=== PATIENT | female | born 1970 | race Caucasian/White ===

== ENCOUNTER 2019-12-27 11:49 | Inpatient (IN) | payer SELFPAY ==
[2019-12-27] MEDS ORDERED: NA CHLORIDE 0.9% 1,000 ML ONE ×4 (12:23→18:27)
[2019-12-27] MEDS ORDERED: ONDANSETRON 4 MG/2 ML VIAL ONE (12:23)
[2019-12-27 12:44] LABS: Protime INR 1.25
[2019-12-27 12:49] LABS: Hematocrit 22.7 % (36.0-45.0); RBC Red Blood Cell Count 3.17 M/uL (3.86-4.86)
--- NOTE | 2019-12-27 12:58 | RAD REPORT ---
EXAM DESCRIPTION: Angel[facility] Single View12/27/2019 12:42 pm CLINICAL HISTORY: sob COMPARISON: none FINDINGS: The right hilum is prominent. Left lung appears clear. The heart is normal sized IMPRESSION: Right hilum is prominent. This may represent confluence of pulmonary vessels or probably less likely lymphadenopathy. Follow up PA and lateral chest series in 1 month is recommended for re- evaluation
[2019-12-27 13:01] LABS: ALT/SGPT 34 U/L (12-78); AST/SGOT 148 U/L (15-37); Albumin 2.8 g/dL (3.4-5.0); Alkaline Phosphatase 259 U/L (45-117); BUN Blood Urea Nitrogen 2 mg/dL (7-18); Bicarbonate 23 mmol/L (21-32); Bilirubin Direct 1.3 mg/dL (0-0.2); Bilirubin Total 1.9 mg/dL (0.2-1.0); Glucose Level 121 mg/dL (74-106); Magnesium 1.4 mg/dL (1.8-2.4); NT PRO-BNP 126 pg/mL (<125); Protein, Total 7.9 g/dL (6.4-8.2); Sodium Level 136 mmol/L (136-145); Troponin (Emerg Dept Use Only) < 0.02 ng/mL (0.0-0.045)
[2019-12-27 13:09] LABS: Potassium 2.6 mmol/L (3.5-5.1)
[2019-12-27 13:10] LABS: Anisocytosis 1+; Blood Morphology Comment NOTED (NOT SEEN); Platelet Estimate ADEQ; Platelets, Giant FEW
--- NOTE | 2019-12-27 13:10 | RAD REPORT ---
EXAM DESCRIPTION: CT - Head Brain Wo Cont - 12/27/2019 12:43 pm CLINICAL HISTORY: dizziness COMPARISON: None. TECHNIQUE: Computed axial tomography of the head was obtained. IV contrast was not requested. All CT scans are performed using dose optimization technique as appropriate and may include automated exposure control or mA/KV adjustment according to patient size. FINDINGS: An intracranial bleed is not seen . The ventricles are normal in caliber. No extra-axial fluid collection is noted. Fluid within the sinuses/ mastoids is not seen. IMPRESSION: No acute intracranial abnormality is seen. If patient's symptoms persist MRI of the bra in would be recommended.
[2019-12-27 13:11] LABS: Hypochromasia 3+
[2019-12-27] MEDS ORDERED: MAGNESIUM SULFATE 1 gm IVPB 1 GM/100 ML BAG IV ONE (13:33)
[2019-12-27] MEDS ORDERED: KCL 20 MEQ/100 mL IVPB 20 MEQ/100 ML BAG IV ONE ×2 (13:34→15:40)
--- NOTE | 2019-12-27 14:18 | RAD REPORT ---
EXAM DESCRIPTION: CT - Abdomen Pelvis W Contrast - 12/27/2019 1:41 pm CLINICAL HISTORY: Abdominal pain/vomiting COMPARISON: 2009 TECHNIQUE: Computed axial tomography of the abdomen pelvis was obtained. 100 cc Isovue-300 was admin istered intravenously. Oral contrast was not requested which limits evaluation of bowel. All CT scans are performed using dose optimization technique as appropriate and may include automated exposure control or mA/KV adjustment according to patient size. FINDINGS: Fatty liver. Cholelithiasis without gallbladder wall thickening. The spleen measures 13 centimeters. Pancreas and adrenals unremarkable Punctate nonobstructing calculi a left kidney Moderate right hydronephrosis minimally improved from the prior exam. Delayed concentration of contra st within the right kidney. 9.7 centimeter heterogeneous mass abuts the left aspect of the uterus. It has increased in size since the prior exam. A 4.7 centimeter mass abuts the right aspect of the uterine fundus. 3 centimeter com plex cystic structure right adnexa. Trace amount of free fluid. No evidence of diverticulitis. Small umbilical hernia IMPRESSION: Moderate right hydronephrosis probably is secondary to a UPJ stricture 9.7 centimeter mass which abuts the left aspect of the uterus may represent a degenerating fibroid. 4.7 centimeter mass abutting the right aspect of the uterine fundus may represent a subserosal fibroi d. 3.1 centimeter complex cystic structure right adnexa may arise from the right ovary may represent a b enign complex cyst MRI of the pelvis is recommended for further evaluation Cholelithiasis
--- NOTE | 2019-12-27 14:44 | RAD REPORT ---
EXAM DESCRIPTION: US - Abdomen Exam Limited - 12/27/2019 2:21 pm CLINICAL HISTORY: Abdominal pain. COMPARISON: None. FINDINGS: The gallbladder wall is not thickened. Small gallstone The biliary tree is normal caliber. IMPRESSION: Cholelithiasis without evidence cholecystitis
[2019-12-27 15:26] LABS: Urine Bacteria >50 /HPF (<20); Urine Culture Reflex Order NOT NEEDED; Urine RBC <5 /HPF (NONE SEEN)
[2019-12-27 15:26] LABS: Urine Blood NEGATIVE (NEG); Urine Glucose NEGATIVE (NEG); Urine Protein NEGATIVE (NEG); Urine pH 6.5 (5.0-7.0)
--- NOTE | 2019-12-27 15:31 | ER ---
Nurse's Notes [facility] Name: Bisi Key Age: 49 yrs Sex: Female : 1970 Arrival Date: 12/27/2019 Time: 11:54 Bed 13 Private MD: None, None Diagnosis: Urinary tract infection, site not specified;Hypokalemia;Hypomagnesemia;Infectious mononucleosis;Anemia Presentation: 12/26 12:05 Chief complaint: Patient states: Dizziness, N/V, low back pain and generalized weakness ph x approx 10 days, denies fever or urinary stmptoms. Coronavirus screen: Patient denies a cough. Patient denies shortness of breath or difficulty breathing. Patient denies measured and/or subjective temperature greater than 100.4F prior to today's visit. Patient denies travel on a cruise ship or to a country the [facility] currently lists as an affected area. Patient denies contact with known and/or suspected case of COVID-19. Ebola Screen: No symptoms or risks identified at this time. Initial Sepsis Screen: Does the patient meet any 2 criteria? No. Patient's initial sepsis screen is negative. Does the patient have a suspected source of infection? No. Patient's initial sepsis screen is negative. Risk Assessment: Do you want to hurt yourself or someone else? Patient reports no desire to harm self or others. Onset of symptoms was December 27, 2019. 12:05 Method Of Arrival: Ambulatory ph 12:05 Acuity: AKASH 3 ph Triage Assessment: 13:00 General: Appears ill, Behavior is calm, cooperative. ll1 17:08 Pain: Complains of pain in upper abdomen that wraps around trunk to back Pain currently ll1 is 3 out of 10 on a pain scale. Quality of pain is described as pressure, Is continuous. Cardiovascular: Reports fatigue, shortness of breath, Heart tones S1 S2 Capillary refill < 3 seconds Clubbing of nail beds is absent JVD is absent Patient's skin is warm and dry. Respiratory: No deficits noted. GI: Abdomen is flat, Bowel sounds present X 4 quads. Abd is soft and non tender Reports upper abdominal pain, nausea, vomiting. 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 - Social history:: Smoking status: Patient denies any tobacco usage or history of. Screenin:09 Abuse screen: Denies threats or abuse. Nutritional screening: No deficits noted. ll1 Tuberculosis screening: No symptoms or risk factors identified. Fall Risk IV access (20 points). Gait- Weak (10 pts.). Total Calvo Fall Scale indicates Low Risk Score (25-44 pts). Fall prevention measures have been instituted. Side Rails Up X 2 Frequent Obs/Assesments occuring As available Patient and Family Educated on Fall Prevention Program and strategies. Assessment: 12:07 General: Appears uncomfortable, Behavior is calm, cooperative. Neuro: Reports ll1 dizziness, weakness. Cardiovascular: No deficits noted. Respiratory: Reports shortness of breath on exertion Airway is patent Trachea midline Respiratory effort is even, unlabored, Respiratory pattern is regular, symmetrical, the patient has mild shortness of breath. GI: Abdomen is flat, Bowel sounds present X 4 quads. Abd is soft and non tender Reports nausea, vomiting. 13:00 Reassessment: No changes from previously documented assessment. Patient and/or family ll1 updated on plan of care and expected duration. Pain level reassessed. Patient is alert, oriented x 3, equal unlabored respirations, skin warm/dry/pink. 14:00 Reassessment: No changes from previously documented assessment. Patient and/or family ll1 updated on plan of care and expected duration. Pain level reassessed. Patient is alert, oriented x 3, equal unlabored respirations, skin warm/dry/pink. 15:00 Reassessment: No changes from previously documented assessment. Patient and/or family ll1 updated on plan of care and expected duration. Pain level reassessed. Patient is alert, oriented x 3, equal unlabored respirations, skin warm/dry/pink. 16:00 Reassessment: No changes from previously documented assessment. Patient and/or family ll1 updated on plan of care and expected duration. Pain level reassessed. Patient is alert, oriented x 3, equal unlabored respirations, skin warm/dry/pink. 17:00 Reassessment: No changes from previously documented assessment. Patient and/or family ll1 updated on plan of care and expected duration. Pain level reassessed. Patient is alert, oriented x 3, equal unlabored respirations, skin warm/dry/pink. 17:57 Reassessment: No changes from previously documented assessment. Patient and/or family ll1 updated on plan of care and expected duration. Pain level reassessed. Patient is alert, oriented x 3, equal unlabored respirations, skin warm/dry/pink. Vital Signs: 12:05 BP 107 / 72; Pulse 101; Resp 18; Temp 97.4; Pulse Ox 100% on R/A; Weight 68.04 kg; ph Height 5 ft. 3 in. (160.02 cm); Pain 3/10; 12:52 BP 103 / 66; Pulse 69; Resp 16; Pulse Ox 100% ; ll1 14:19 BP 108 / 64; Pulse 92; Resp 18; Pulse Ox 100% ; ll1 15:22 BP 102 / 64; Pulse 92; Resp 17; Pulse Ox 99% ; ll1 16:38 BP 109 / 70; Pulse 88; Resp 16; Pulse Ox 100% ; ll1 16:47 Pulse 88; Resp 16; Temp 97.9; Pulse Ox 100% ; Pain 3/10; ll1 17:52 BP 106 / 67; Pulse 89; Resp 16; Pulse Ox 99% ; ll1 12:05 Body Mass Index 26.57 (68.04 kg, 160.02 cm) ph ED Course: 11:54 Patient arrived in ED. dp 11:55 Cailin Mcadams RN is Primary Nurse. ll1 11:56 [facility]. m 11:56 Gaurang Carbajal MD is Attending Physician. jmm 11:56 None, None is Private Physician. dp 12:06 Inserted saline lock: 20 gauge in right antecubital area, using aseptic technique. ll1 Blood collected. 12:07 Triage completed. ph 12:07 Arm band placed on Patient placed in an exam room, on a stretcher. ph 12:09 Patient has correct armband on for positive identification. Bed in low position. Call ll1 light in reach. Side rails up X 1. 12:39 EKG done, by industrial machine system technician. reviewed by Amor WHEELER. at1 12:42 XRAY Chest (1 view) In Process Unspecified. EDMS 12:43 CT Head Brain wo Cont In Process Unspecified. EDMS 13:42 CT Abd/Pelvis - IV Contrast Only In Process Unspecified. EDMS 14:22 US Abdomen Limited In Process Unspecified. EDMS 15:29 Aimee Barba MD is Hospitalizing Provider. m 17:07 No provider procedures requiring assistance completed. Patient admitted, IV remains in ll1 place. Administered Medications: 12:28 Drug: NS 0.9% 1000 ml Route: IV; Rate: 1 bolus; Site: right antecubital; 1 13:30 Follow up: Response: No adverse reaction; RASS: Alert and Calm (0); IV Status: ll1 Completed infusion; IV Intake: 1000ml 12:28 Drug: Zofran (Ondansetron) 4 mg Route: IVP; Site: right antecubital; 1 12:51 Follow up: Response: No adverse reaction; Nausea is decreased; RASS: Alert and Calm (0) ll1 14:14 Drug: Potassium Chloride 20 mEq Route: IV; Rate: calculated rate; Site: right ll1 antecubital; 15:52 Follow up: Response: No adverse reaction; RASS: Alert and Calm (0); IV Status: ll1 Completed infusion; IV Intake: 100ml 14:14 Drug: Magnesium Sulfate 1 grams Route: IVPB; Infused Over: 1 hrs; Site: right ll1 antecubital; 15:21 Follow up: Response: No adverse reaction; IV Status: Completed infusion; IV Intake: ll1 100ml 15:40 Drug: Rocephin - (cefTRIAXone) 1 grams Route: IVPB; Infused Over: 30 mins; Site: right ll1 antecubital; 15:53 Follow up: Response: No adverse reaction; IV Status: Completed infusion; IV Intake: [id number] 15:54 Drug: Potassium Chloride 20 mEq Route: IV; Rate: calculated rate; Site: right ll1 antecubital; 17:12 Follow up: Response: No adverse reaction; IV Status: Infusion continued upon admission; [facility] IV Intake: 40ml 18:01 Follow up: IV Status: Completed infusion; IV Intake: 60ml ll1 Intake: 13:30 IV: 1000ml; Total: 1000ml. ll1 15:21 IV: 100ml; Total: 1100ml. ll1 15:52 IV: 100ml; Total: 1200ml. ll1 15:53 IV: 10ml; Total: 1210ml. ll1 17:12 IV: 40ml; Total: 1250ml. ll1 18:01 IV: 60ml; Total: 1310ml. 1 Outcome: 15:30 Decision to Hospitalize by Provider. jaya 17:11 Admitted to Med/surg accompanied by tech, via stretcher, room 230, Report called to [facility] Nurse Leonor on 17:11 Condition: stable 17:11 Instructed on the need for admit. 17:58 Patient left the ED. [facility] Signatures: Dispatcher [employer] EDMS Amor Velasquez PA PA jmm Gonzales, Amanda, lab rn EKG Tat1 Martha Mittal, RN RN John Kwan Lynsay, RN RN [facility]
--- NOTE | 2019-12-27 15:31 | EDPHYS ---
Physician Documentation [facility] Name: Bisi Key Age: 49 yrs Sex: Female : 1970 Arrival Date: 12/27/2019 Time: 11:54 Bed 13 Private MD: None, None ED Physician Gaurang Carbajal HPI: 12/26 12:04 This 49 yrs old Female presents to ER via Ambulatory with complaints of jmm General Weakness, Nausea/Vomiting. 12:04 The patient presents with dizziness, lightheadedness. Onset: The symptoms/episode jmm began/occurred acutely, 10 day(s) ago. Modifying factors: The symptoms are alleviated by holding head still, lying down, the symptoms are aggravated by movement of head, changing position. Associated signs and symptoms: Pertinent positives: abdominal pain, headache, shortness of breath, vomiting. This is a 49 year old female with no chronic medical conditions that presents to the ED with complaints of dizziness beginning 10 days ago. Dizziness was acute on onset, worsened with changes in position. Patient states dizziness has now decreased but still feels lightheaded. Patient states approx 5 days ago she began to vomit every times she ate. Patient states now she feels shortness of breath on exertion. . 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 - Social history:: Smoking status: Patient denies any tobacco usage or history of. ROS: 12:04 Neck: Negative for injury, pain, and swelling, Cardiovascular: Negative for chest pain, jmm palpitations, and edema. 12:04 Constitutional: Positive for fatigue, malaise. 12:04 ENT: Positive for sore throat. 12:04 Respiratory: Positive for dyspnea on exertion, shortness of breath. 12:04 Abdomen/GI: Positive for abdominal pain, nausea and vomiting. 12:04 Neuro: Positive for dizziness. 12:04 All other systems are negative. Exam: 12:04 Constitutional: This is a well developed, well nourished patient who is awake, alert, jmm and in no acute distress. Head/Face: atraumatic. Eyes: EOMI, no conjunctival erythema appreciated ENT: Moist Mucus Membranes Neck: Trachea midline, Supple Chest/axilla: Normal chest wall appearance and motion. Cardiovascular: Regular rate and rhythm. No edema appreciated Respiratory: Normal respirations, no respiratory distress appreciated Abdomen/GI: Non distended, soft Back: Normal ROM Skin: General appearance color normal MS/ Extremity: Moves all extremities, no obvious deformities appreciated, no edema noted to the lower extremities Neuro: Awake and alert, normal gait Psych: Behavior is normal, Mood is normal, Patient is cooperative and pleasant Vital Signs: 12:05 BP 107 / 72; Pulse 101; Resp 18; Temp 97.4; Pulse Ox 100% on R/A; Weight 68.04 kg; ph Height 5 ft. 3 in. (160.02 cm); Pain 3/10; 12:52 BP 103 / 66; Pulse 69; Resp 16; Pulse Ox 100% ; ll1 14:19 BP 108 / 64; Pulse 92; Resp 18; Pulse Ox 100% ; ll1 15:22 BP 102 / 64; Pulse 92; Resp 17; Pulse Ox 99% ; ll1 16:38 BP 109 / 70; Pulse 88; Resp 16; Pulse Ox 100% ; ll1 16:47 Pulse 88; Resp 16; Temp 97.9; Pulse Ox 100% ; Pain 3/10; ll1 17:52 BP 106 / 67; Pulse 89; Resp 16; Pulse Ox 99% ; ll1 12:05 Body Mass Index 26.57 (68.04 kg, 160.02 cm) ph MDM: 12:04 Patient medically screened. [facility] 15:29 Data reviewed: vital signs, nurses notes. Counseling: I had a detailed discussion with [facility] the patient and/or guardian regarding: the historical points, exam findings, and any diagnostic results supporting the discharge/admit diagnosis, lab results, radiology results, the need for outpatient follow up, the need for further work-up and treatment in the hospital. ED course: I discussed the patient with Dr. Barba whom accepted admission. . 12/26 12:14 Order name: Basic Metabolic Panel; Complete Time: 13:12 [facility] 12/26 12:14 Order name: CBC with Diff; Complete Time: 13:12 [facility] 12/26 12:14 Order name: LFT's; Complete Time: 13:12 [facility] 12/26 12:14 Order name: Magnesium; Complete Time: 13:12 [facility] 12/26 12:14 Order name: NT PRO-BNP; Complete Time: 13:12 [facility] 12/26 12:14 Order name: PT-INR; Complete Time: 13:06 [facility] 12/26 12:14 Order name: Troponin (emerg Dept Use Only); Complete Time: 13:12 [facility] 12/26 12:16 Order name: Lipase; Complete Time: 13:06 [facility] 12/26 12:28 Order name: D-Dimer; Complete Time: 13:12 [facility] 12/26 12:29 Order name: Strep; Complete Time: 13:38 [facility] 12/26 12:29 Order name: [place] Screen Profile; Complete Time: 13:38 [facility] 12/26 13:00 Order name: Manual Differential; Complete Time: 13:12 [facility] 12/26 13:07 Order name: Type And Screen [facility] 12/26 13:28 Order name: Throat Culture [facility] 12/26 12:14 Order name: XRAY Chest (1 view); Complete Time: 13:06 [facility] 12/26 12:14 Order name: CT Head Brain wo Cont; Complete Time: 13:12 [facility] 12/26 13:14 Order name: CT Abd/Pelvis - IV Contrast Only; Complete Time: 14:26 [facility] 12/26 13:14 Order name: US Abdomen Limited; Complete Time: 14:56 [facility] 12/26 15:09 Order name: Urine Microscopic Only; Complete Time: 15:27 [facility] 12/26 15:09 Order name: Urine Culture [facility] 12/26 15:10 Order name: Urine Dipstick--Ancillary (enter results); Complete Time: 15:27 12/26 15:10 Order name: Urine --Ancillary (enter results); Complete Time: 15:27 12/26 15:43 Order name: Packed RBC Leukored [facility] 12/26 15:55 Order name: Bb Add On 12/26 12:14 Order name: EKG; Complete Time: 12:15 [facility] 12/26 12:14 Order name: Cardiac monitoring; Complete Time: 14:14 [facility] 12/26 12:14 Order name: EKG - Nurse/Tech; Complete Time: 14:14 [facility] 12/26 12:14 Order name: IV Saline Lock; Complete Time: 12:29 [facility] 12/26 12:14 Order name: Labs collected and sent; Complete Time: 12: [facility] 12/26 12:14 Order name: O2 Per Protocol; Complete Time: 12: [facility] 12/26 12:14 Order name: O2 Sat Monitoring; Complete Time: 12: [facility] 12/26 12:16 Order name: Urine Dipstick-Ancillary (obtain specimen); Complete Time: 17:14 [facility] Administered Medications: 12:28 Drug: NS 0.9% 1000 ml Route: IV; Rate: 1 bolus; Site: right antecubital; [facility] 13:30 Follow up: Response: No adverse reaction; RASS: Alert and Calm (0); IV Status: ll1 Completed infusion; IV Intake: 1000ml 12:28 Drug: Zofran (Ondansetron) 4 mg Route: IVP; Site: right antecubital; [facility] 12:51 Follow up: Response: No adverse reaction; Nausea is decreased; RASS: Alert and Calm (0) [facility] 14:14 Drug: Potassium Chloride 20 mEq Route: IV; Rate: calculated rate; Site: right 1 antecubital; 15:52 Follow up: Response: No adverse reaction; RASS: Alert and Calm (0); IV Status: ll1 Completed infusion; IV Intake: 100ml 14:14 Drug: Magnesium Sulfate 1 grams Route: IVPB; Infused Over: 1 hrs; Site: right 1 antecubital; 15:21 Follow up: Response: No adverse reaction; IV Status: Completed infusion; IV Intake: ll1 100ml 15:40 Drug: Rocephin - (cefTRIAXone) 1 grams Route: IVPB; Infused Over: 30 mins; Site: right 1 antecubital; 15:53 Follow up: Response: No adverse reaction; IV Status: Completed infusion; IV Intake: [id number] 15:54 Drug: Potassium Chloride 20 mEq Route: IV; Rate: calculated rate; Site: right 1 antecubital; 17:12 Follow up: Response: No adverse reaction; IV Status: Infusion continued upon admission; [facility] IV Intake: 40ml 18:01 Follow up: IV Status: Completed infusion; IV Intake: 60ml ll1 Disposition: 18:29 Co-signature as Attending Physician, Gaurang Carbajal MD Available for consultation at [facility] all times. . Disposition: 12/27/19 15:30 Hospitalization ordered by Aimee Barba for Observation. Preliminary diagnosis are Urinary tract infection, site not specified, Hypokalemia, Hypomagnesemia, Infectious mononucleosis, Anemia. - Bed requested for Telemetry/MedSurg (observation). - Status is Observation. ll1 - Condition is Stable. - Problem is new. - Symptoms are unchanged. Signatures: Dispatcher [employer] EDHI Amor Velasquez PA PA Martha Dudley, RN RN Gaurang Carbajal MD MD [facility] Gema Bowman Cailin Mcadams RN RN ll1 Corrections: (The following items were deleted from the chart) 15:43 15:26 PACKED RBC LEUKORED -1+[id number].LAB.BRZ ordered. EDHI EDHI 15:43 15:27 ABO/RH typing ordered. EDHI EDHI 15:43 15:27 Antibody Screen ordered. EDHI EDHI 16:16 15:30 Hospitalization Ordered by Aimee Barba MD for Observation. Preliminary diagnosis eb is Urinary tract infection, site not specified; Hypokalemia; Hypomagnesemia; Infectious mononucleosis; Anemia. Bed requested for Telemetry/MedSurg (observation). Status is Observation. Condition is Stable. Problem is new. Symptoms are unchanged. [facility] 16:37 16:16 12/27/2019 15:30 Hospitalization Ordered by Aimee Barba MD for Observation. eb Preliminary diagnosis is Urinary tract infection, site not specified; Hypokalemia; Hypomagnesemia; Infectious mononucleosis; Anemia. Bed requested for Telemetry/MedSurg (observation). Status is Observation. Condition is Stable. Problem is new. Symptoms are unchanged. eb 17:58 16:37 12/27/2019 15:30 Hospitalization Ordered by Aimee Barba MD for Observation. ll1 Preliminary diagnosis is Urinary tract infection, site not specified; Hypokalemia; Hypomagnesemia; Infectious mononucleosis; Anemia. Bed requested for Telemetry/MedSurg (observation). Status is Observation. Condition is Stable. Problem is new. Symptoms are unchanged. eb
[2019-12-27] MEDS ORDERED: CEFTRIAXONE/SWI 1gm 1 GM/10 ML SYR ONE (15:39)
[2019-12-27] MEDS ORDERED: ONDANSETRON 4 MG/2 ML VIAL IV PRN (18:07)
[2019-12-27] MEDS ORDERED: ACETAMINOPHEN 500 MG TAB PO PRN (18:07)
--- NOTE | 2019-12-27 18:07 | P.HP ---
Certification for Inpatient Patient admitted to: Observation With expected LOS: <2 Midnights Practitioner: I am a practitioner with admitting privileges, knowledge of patient current condition, hospital course, and medical plan of care. Services: Services provided to patient in accordance with Admission requirements found in Title 42 Section 412.3 of the Code of Federal Regulations Patient History Date of Service: 12/27/19 Reason for admission: Generalized weakness History of Present Illness: Patient is a 41-year-old female with no significant past medical history comes in with vague symptoms including generalized weakness sore throat headache nausea and vomiting that has been ongoing for the past 10 days. Patient otherwise denies any fever chills cough. Does report some abdominal pain and shortness of breath with exertion. Symptoms are constant moderate progressively worsening. Otherwise denies any vaginal bleeding or dark stools. Patient's workup revealed a potassium of 2.6 hemoglobin was 6.4 and magnesium was 1.4 imaging studies were negative for splenomegaly did show some gallstones however the ultrasound was negative for cholecystitis. Patient is unable to stand for more than 10 min. Due to her symptomatic anemia and positive mono test she is referred for admission. When seen in the ER she was awake alert oriented x3 in some mild distress Allergies No Known Allergies Allergy (Unverified 09/26/17 19:52) Home medications list reviewed: Yes Home Medications: NK [No Home Meds] 12/27/19 - Past Medical/Surgical History Diabetic: No Past Medical History: Patient denies medical history -: Tubal ligation - Family History Mother -: Cancer (Lungs) Father -: Heart disease, Other (see notes) (Brain Aneurysm) - Social History Smoking Status: Never smoker Alcohol use: Yes Place of Residence: Home Review of Systems 10-point ROS is otherwise unremarkable General: As per HPI Physical Examination - Vital Signs Temperature: 97.4 F Blood Pressure: 107/72 Pulse: 101 Respirations: 18 Pulse Ox (%): 100 - Physical Exam General: Alert, Oriented x3, Mild distress, Other (Ill-appearing female) HEENT: Atraumatic, PERRLA, Other (Dry mucous membranes), EOMI, Sclerae nonicteric Neck: Supple, JVD not distended, No LAD Respiratory: Clear to auscultation bilaterally, Normal air movement Cardiovascular: No edema, Normal pulses, Regular rate/rhythm, Normal S1 S2 Gastrointestinal: Normal bowel sounds, Soft and benign, Non-distended, No tenderness Musculoskeletal: No tenderness Integumentary: No rashes, No erythema Neurological: Normal speech, Normal strength at 5/5 x4 extr, Normal tone, Cranial nerves 3-12 intact, Normal affect - Studies Laboratory Data (last 24 hrs) 12/27/19 12:15: Lipase 127 12/27/19 12:15: PT 14.7 H, INR 1.25 12/27/19 12:15: WBC 3.9 L, Hgb 6.4 L*, Hct 22.7 L, Plt Count 444 H 12/27/19 12:15: Sodium 136, Potassium 2.6 L*, BUN 2 L, Creatinine 0.62, Glucose 121 H, Magnesium 1.4 L*, Total Bilirubin 1.9 H, AST 148 H, ALT 34, Alkaline Phosphatase 259 H Microbiology Data (last 24 hrs): 12/27/19 12:46 Throat Group A Streptococcus Rapid Screen - Final Imagings Data: IMPRESSION: Moderate right hydronephrosis probably is secondary to a UPJ stricture 9.7 centimeter mass which abuts the left aspect of the uterus may represent a degenerating fibroid. 4.7 centimeter mass abutting the right aspect of the uterine fundus may represent a subserosal fibroid. 3.1 centimeter complex cystic structure right adnexa may arise from the right ovary may represent a benign complex cyst MRI of the pelvis is recommended for further evaluation EXAM DESCRIPTION: US - Abdomen Exam Limited - 12/27/2019 2:21 pm CLINICAL HISTORY: Abdominal pain. COMPARISON: None. FINDINGS: The gallbladder wall is not thickened. Small gallstone The biliary tree is normal caliber. IMPRESSION: Cholelithiasis without evidence cholecystitis Report Status: Signed EXAM DESCRIPTION: CT - Head Brain Wo Cont - 12/27/2019 12:43 pm CLINICAL HISTORY: dizziness COMPARISON: None. TECHNIQUE: Computed axial tomography of the head was obtained. IV contrast was not requested. All CT scans are performed using dose optimization technique as appropriate and may include automated exposure control or mA/KV adjustment according to patient size. FINDINGS: An intracranial bleed is not seen . The ventricles are normal in caliber. No extra-axial fluid collection is noted. Fluid within the sinuses/ mastoids is not seen. IMPRESSION: No acute intracranial abnormality is seen. If patient's symptoms persist MRI of the brain would be recommended. EXAM DESCRIPTION: Mehran Single View12/27/2019 12:42 pm CLINICAL HISTORY: sob COMPARISON: none FINDINGS: The right hilum is prominent. Left lung appears clear. The heart is normal sized IMPRESSION: Right hilum is prominent. This may represent confluence of pulmonary vessels or probably less likely lymphadenopathy. Follow up PA and lateral chest series in 1 month is recommended for re-evaluation Assessment and Plan - Plan 49-year-old female with 1. Infectious mononucleosis. Start on IV fluids. Continue supportive treatment. CT scan did not show any splenomegaly. 2. Acute microcytic hypochromic anemia. unclear etiology. Likely iron deficiency. patient has history of anemia during . Will check iron panel. Patient is being transfused two units of blood. will give Lasix after and recheck hemoglobin 2 hr posttransfusion. Patient denies any vaginal bleed or dark stools. No hematemesis. 3. Hypomagnesemia. Will replace and monitor. 4. Hypokalemia. Will replace and monitor 5. Non intractable nausea vomiting. Will start on IVZofran p.r.n. likely related to above 6. Generalized weakness. Secondary to mono. 7. Uterine fibroids. MRI abdomen as an outpatient follow up with OBGYN. DVT prophylaxis with Lovenox Patient will need to establish care with primary care physician Patient will need to have a two view chest x-ray in 1 month to further evaluate prominent right hilum to rule out any malignancy. Maybe pulmonary vessels versus lymphadenopathy Mother of lung cancer in her 40s. Mother was a heavy smoker Patient has not had any of her cancer screenings including Pap smears or mammograms. She was counseled regarding routine cancer screenings. She understands the benefits of screenings and risks of daily inc. Discharge Plan: Home Plan to discharge in: 24 Hours - Advance Directives Does patient have a Living Will: No Does patient have a Durable POA for Healthcare: No
[2019-12-27 18:17] VITALS: BMI 26.5
[2019-12-27] MEDS: NA CHLORIDE 0.9% 1,000 ML IV SCH (18:30)
[2019-12-27] MEDS ORDERED: FUROSEMIDE 20 MG/ 2ML VIAL IV ONE (19:00)
[2019-12-27] MEDS ORDERED: NA CHLORIDE 0.9% 250 ML ONE (21:38)
[2019-12-27] MEDS ORDERED: IBUPROFEN 400 MG TAB PO ONE (23:00)
[2019-12-28] MEDS: NA CHLORIDE 0.9% 1,000 ML IV SCH ×2 (01:45→10:07)
[2019-12-28] MEDS ORDERED: NA CHLORIDE 0.9% 250 ML ONE (03:14)
[2019-12-28 06:13] LABS: ALT/SGPT 29 U/L (12-78); AST/SGOT 128 U/L (15-37); Albumin 2.3 g/dL (3.4-5.0); Alkaline Phosphatase 211 U/L (45-117); BUN Blood Urea Nitrogen 1 mg/dL (7-18); Bicarbonate 25 mmol/L (21-32); Bilirubin Total 2.7 mg/dL (0.2-1.0); Glucose Level 99 mg/dL (74-106); Magnesium 1.6 mg/dL (1.8-2.4); Protein, Total 6.3 g/dL (6.4-8.2); Sodium Level 140 mmol/L (136-145)
[2019-12-28 06:14] LABS: Potassium 2.9 mmol/L (3.5-5.1)
[2019-12-28 06:18] LABS: Hematocrit 25.6 % (36.0-45.0); MPV 7.7 fL (7.6-11.3); RBC Red Blood Cell Count 3.42 M/uL (3.86-4.86)
[2019-12-28] MEDS ORDERED: POTASSIUM 25 MEQ EFFERV TAB PO ONE (07:00)
[2019-12-28] MEDS ORDERED: MAGNESIUM SULFATE 1 gm IVPB 1 GM/100 ML BAG IV ONE (08:00)
[2019-12-28 08:50] VITALS: O2SAT 98
[2019-12-28] MEDS ORDERED: CEFTRIAXONE/SWI 1gm 1 GM/10 ML SYR IVP SCH (09:00)
[2019-12-28 09:06] LABS: Hematocrit 27.9 % (36.0-45.0)
--- NOTE | 2019-12-28 09:25 | P.DS ---
Admission Date: 12/27/19 Discharge Date: 12/28/19 Disposition: ROUTINE DISCHARGE Discharge Condition: GOOD Reason for Admission: Generalized weakness Brief History of Present Illness: Patient is a 41-year-old female with no significant past medical history comes in with vague symptoms including generalized weakness sore throat headache nausea and vomiting that has been ongoing for the past 10 days. Patient otherwise denies any fever chills cough. Does report some abdominal pain and shortness of breath with exertion. Symptoms are constant moderate progressively worsening. Otherwise denies any vaginal bleeding or dark stools. Patient's workup revealed a potassium of 2.6 hemoglobin was 6.4 and magnesium was 1.4 imaging studies were negative for splenomegaly did show some gallstones however the ultrasound was negative for cholecystitis. Patient is unable to stand for more than 10 min. Due to her symptomatic anemia and positive mono test she is referred for admission. When seen in the ER she was awake alert oriented x3 in some mild distress Hospital Course: Patient is a 49-year-old female with no significant past medical history comes in with generalized weakness. Patient found to have mononucleosis and UTI. Patient also had severe anemia of unclear etiology. Workup revealed iron deficiency. Patient otherwise denies any blood loss in the stool or vaginal bleeding. Patient does have uterine fibroids which she will need to follow up with OBGYN. Patient's chest x-ray also showed some right sided fullness she will need to have two-view chest x-ray or possible CT scan of the chest in the next 2-4 weeks for further evaluation. Patient understands that she has a strong family history of lung cancer and this may be signs of malignancy. Patient is also counseled regarding her cancer screenings including mammogram and Pap smear. Patient was transfused blood and had improvement in her hemoglobin. Stool occult is pending at this time patient's urine culture grew out Gram negative rods with ID and sensitivity pending at this time. Patient was given Rocephin IV. Patient's electrolytes including potassium and magnesium were replaced. Patient was then cleared for discharge and she was feeling significantly better. She will need to be on iron supplementation going for it. She understands it is important for her to establish care with a primary care physician in order to manage her anemia. She will need a repeat hemoglobin level in the next week. 1. Infectious mononucleosis. Start on IV fluids. Continue supportive treatment. CT scan did not show any splenomegaly. 2. Acute microcytic hypochromic anemia. unclear etiology. Likely iron deficiency. patient has history of anemia during . Will check iron panel. Patient is being transfused two units of blood. will give Lasix after and recheck hemoglobin 2 hr posttransfusion. Patient denies any vaginal bleed or dark stools. No hematemesis. 3. Hypomagnesemia. Will replace and monitor. 4. Hypokalemia. Will replace and monitor 5. Non intractable nausea vomiting. Will start on IVZofran p.r.n. likely related to above 6. Generalized weakness. Secondary to mono. 7. Uterine fibroids. MRI abdomen as an outpatient follow up with OBGYN. Vital Signs/Physical Exam: Temp Pulse Resp BP Pulse Ox 97.5 F 80 16 100/53 L 96 12/28/19 04:00 12/28/19 04:00 12/28/19 04:00 12/28/19 04:00 12/28/19 04:00 General: Alert, In no apparent distress, Oriented x3 HEENT: Atraumatic, PERRLA, EOMI Neck: Supple, JVD not distended Respiratory: Clear to auscultation bilaterally, Normal air movement Cardiovascular: No edema, Normal pulses, Regular rate/rhythm, Normal S1 S2 Gastrointestinal: Normal bowel sounds, Soft and benign, Non-distended, No tenderness Musculoskeletal: No tenderness Integumentary: No rashes Neurological: Normal speech, Normal strength at 5/5 x4 extr, Normal tone, Cranial nerves 3-12 intact, Normal affect Laboratory Data at Discharge: WBC 4.6 K/uL (4.3-10.9) D 12/28/19 05:31 Hgb 8.8 g/dL (12.0-15.0) L 12/28/19 08:58 Hct 27.9 % (36.0-45.0) L 12/28/19 08:58 Plt Count 383 K/uL (152-406) 12/28/19 05:31 PT 14.7 SECONDS (9.5-12.5) H 12/27/19 12:15 INR 1.25 12/27/19 12:15 Sodium 140 mmol/L (136-145) 12/28/19 05:31 Potassium 2.9 mmol/L (3.5-5.1) L* 12/28/19 05:31 BUN 1 mg/dL (7-18) L 12/28/19 05:31 Creatinine 0.43 mg/dL (0.55-1.3) L 12/28/19 05:31 Glucose 99 mg/dL (74-106) 12/28/19 05:31 Magnesium 1.6 mg/dL (1.8-2.4) L 12/28/19 05:31 Total Bilirubin 2.7 mg/dL (0.2-1.0) H 12/28/19 05:31 AST 128 U/L (15-37) H 12/28/19 05:31 ALT 29 U/L (12-78) 12/28/19 05:31 Alkaline Phosphatase 211 U/L (45-117) H 12/28/19 05:31 Lipase 127 U/L (73-393) 12/27/19 12:15 Home Medications: Cefuroxime Axetil [Cefuroxime] 500 mg PO BID #8 tab 12/28/19 Ferrous Sulfate 325 mg PO BID #60 tablet 12/28/19 New Medications: Cefuroxime Axetil [Cefuroxime] 500 mg PO BID #8 tab Ferrous Sulfate 325 mg PO BID #60 tablet Patient Discharge Instructions: Establish care with primary care physician in 1 week. Follow up with her OBGYN regarding uterine fibroids. two-view chest x- ray or CT scan of the chest in 2-4 weeks. Repeat CBC in 1 week. Return to ER for worsening condition. Obtain cancer screenings appropriate for age Time spent managing pt's care (in minutes): 33
[2019-12-28 09:48] LABS: Anisocytosis 2+; Blood Morphology Comment NOTED (NOT SEEN); Hypochromasia 2+; Platelet Estimate ADEQ
--- NOTE | 2019-12-28 12:05 | EKG ---
Test Date: 2019-12-27 Test Time: 12:33:28 Practice Specialist: NICOLAS Blevins MEASUREMENT RESULTS: Intervals: Rate: 87 SC: 118 QRSD: 86 QT: 384 QTc: 462 [place]: P: -20 SC: 118 QRS: 9 T: 39 INTERPRETIVE STATEMENTS: Normal sinus rhythm Low voltage QRS Nonspecific ST and T wave abnormality Prolonged QT Abnormal ECG No previous ECG available for comparison Electronically Signed On 12-28-19 12:03:03 CDT by Santi Conroy
[2019-12-28 13:23] VITALS: BP 106/66; TEMP 97.5
== END 2019-12-28 12:35 | disposition home or self-care (01) | DRG 812 ==
LOC: ER 11:49 → ERHOLD 16:16 → OBSVTOIN 16:16 → 2ND 17:08
PROVIDERS: ADMIT Family Medicine; ATTEND Family Medicine
PROC: 30233N1 Transfusion of Nonautologous Red Blood Cells into Peripheral Vein, Percutaneous Approach (ICD-10-PCS; principal; 2019-12-28)
DX: D50.9 Iron deficiency anemia, unspecified (principal); N30.00 Acute cystitis without hematuria; B27.90 Infectious mononucleosis, unspecified without complication; E83.42 Hypomagnesemia; E87.6 Hypokalemia; D25.9 Leiomyoma of uterus, unspecified; Z79.899 Other long term (current) drug therapy
CPT/HCPCS: 36415; 36430; 70450; 71045; 74177; 76705; 80048; 80053; 80076; 81003; 81015; 81025; 82728; 83540; 83690; 83735; 83880; 84132; 84466; 84484; 85014; 85018; 85025; 85379; 85610; 86308; 86850; 86900; 86901; 87070; 87077; 87081; 87086; 87088; 87186; 93005; 94760; 96361; 96365; 96366; 96368; 96375; 99285; J0696; J1940; J2405; J3475; J7030; P9016; Q9967

== ENCOUNTER 2020-01-25 13:36 | Emergency (ER) | payer SELFPAY ==
--- NOTE | 2020-01-25 15:20 | RAD REPORT ---
EXAM DESCRIPTION: RAD - Chest Single View - 01/25/2020 3:14 pm CLINICAL HISTORY: SOB Chest pain. COMPARISON: Chest Single View dated 12/27/2019 FINDINGS: Portable technique limits examination quality. The lungs are grossly clear. The heart is normal in size. No displaced fractures. IMPRESSION: No acute intrathoracic process suspected.
[2020-01-25 15:24] LABS: ALT/SGPT 29 U/L (12-78); AST/SGOT 243 U/L (15-37); Alkaline Phosphatase 400 U/L (45-117); BUN Blood Urea Nitrogen 1 mg/dL (7-18); Bicarbonate 27 mmol/L (21-32); Bilirubin Direct 3.9 mg/dL (0-0.2); Glucose Level 112 mg/dL (74-106); Lipase 36 U/L (73-393); Potassium 3.3 mmol/L (3.5-5.1); Protein, Total 7.1 g/dL (6.4-8.2); Sodium Level 139 mmol/L (136-145)
[2020-01-25 15:29] LABS: Hematocrit 35.5 % (36.0-45.0); RBC Red Blood Cell Count 4.11 M/uL (3.86-4.86)
[2020-01-25 15:49] LABS: Urine Blood NEGATIVE (NEG); Urine Glucose TRACE (NEG); Urine Protein 2+ (NEG)
[2020-01-25 16:17] LABS: Anisocytosis 3+; Blood Morphology Comment NOTED (NOT SEEN); Platelet Estimate ADEQ
[2020-01-25 16:18] LABS: Absolute Lymphocytes (CBC) 1.4 K/uL (0.7-4.9)
[2020-01-25] MEDS ORDERED: FAMOTIDINE 20 MG/2 ML VIAL IV ONE (16:31)
[2020-01-25] MEDS ORDERED: ONDANSETRON 4 MG/2 ML VIAL ONE (16:31)
[2020-01-25] MEDS ORDERED: MAGNE/ALUM HYDROXD 30 ML UCUP ONE (16:31)
[2020-01-25] MEDS ORDERED: LIDOCAINE VISCOUS 2% SOLN 15 ML UDC ONE (16:31)
--- NOTE | 2020-01-25 16:51 | ER ---
Nurse's Notes [facility] Name: Bisi Key Age: 49 yrs Sex: Female : 1970 Arrival Date: 01/25/2020 Time: 13:42 Bed 8 Private MD: Diagnosis: Other disorders of bilirubin metabolism;Nausea and vomiting Presentation: 01/24 14:09 Chief complaint: Patient states: Discharged from hospital 3 weeks ago after having ss blood transfusion. Pt reports that the iron supplements that she was told to take make her sick to her stomach and any food she tries to eat just makes her nauseous. Has not taken supplements in one week. C/o worsening shortness of breath on exertion. Coronavirus screen: Proceed with normal triage. Patient denies a cough. Patient denies measured and/or subjective temperature greater than 100.4F prior to today's visit. Patient denies travel on a cruise ship or to a country the [facility] currently lists as an affected area. Patient denies contact with known and/or suspected case of COVID-19. Ebola Screen: Patient denies exposure to infectious person. Patient denies travel to an Ebola-affected area in the 21 days before illness onset. Initial Sepsis Screen: Does the patient meet any 2 criteria? No. Patient's initial sepsis screen is negative. Does the patient have a suspected source of infection? No. Patient's initial sepsis screen is negative. Risk Assessment: Do you want to hurt yourself or someone else? Patient reports no desire to harm self or others. Onset of symptoms is unknown. 14:09 Method Of Arrival: Ambulatory ss 14:09 Acuity: AKASH 3 ss Triage Assessment: 14:10 General: Appears in no apparent distress. comfortable, Behavior is cooperative, bp appropriate for age, agitated, anxious. Pain: Complains of pain in abdomen. EENT: No deficits noted. Neuro: No deficits noted. Cardiovascular: Rhythm is sinus tachycardia. Respiratory: Reports shortness of breath Onset: The symptoms/episode began/occurred at an unknown time. the patient has mild shortness of breath. GI: No signs and/or symptoms were reported involving the gastrointestinal system. : No signs and/or symptoms were reported regarding the genitourinary system. Derm: No deficits noted. Musculoskeletal: No deficits noted. Historical: - Allergies: 14:13 No Known Allergies; ss - PMHx: 14:13 Anemia; ss - PSHx: 14:13 Tubal ligation; ss - Immunization history:: Adult Immunizations up to date. - Social history:: Smoking status: Patient denies any tobacco usage or history of. Patient/guardian denies using alcohol, street drugs, The patient lives with family. - Family history:: not pertinent. Screenin:15 Abuse screen: Denies threats or abuse. Denies injuries from another. Nutritional bp screening: No deficits noted. Tuberculosis screening: No symptoms or risk factors identified. Fall Risk None identified. Assessment: 14:10 General: SEE TRIAGE NOTE. Cardiovascular: Rhythm is sinus tachycardia. Respiratory: bp Airway is patent Respiratory effort is even, unlabored, Breath sounds are clear bilaterally. 15:17 Reassessment: UOP PENDING. VS STABLE ON MONITOR. bp 17:10 Reassessment: PT D/C HOME AMBULATORY, DX WITH D/O OF BILIRUBIN METABOLISM. bp Vital Signs: 14:09 BP 116 / 86; Pulse 109; Resp 16; Temp 98.2(TE); Pulse Ox 98% on R/A; Weight 68.04 kg; ss Height 5 ft. 3 in. (160.02 cm); Pain 0/10; 16:29 BP 113 / 83; Pulse 93; Resp 16; Temp 98.1(O); Pulse Ox 99% ; lt1 17:11 BP 125 / 91; Pulse 92; Resp 17; Temp 98; Pulse Ox 99% ; bp 14:09 Body Mass Index 26.57 (68.04 kg, 160.02 cm) ED Course: 13:42 Patient arrived in ED. as 14:02 Elmo Davis, GAGAN is Primary Nurse. bp 14:08 Nilsa Patricia MD is Attending Physician. ma2 14:13 Triage completed. ss 14:13 Arm band placed on right wrist. ss 14:15 Patient has correct armband on for positive identification. Bed in low position. Call bp light in reach. Side rails up X2. 14:56 Initial lab(s) drawn, by me, sent to lab. Inserted saline lock: 22 gauge in right lt1 antecubital area, using aseptic technique. 15:14 Chest Single View XRAY In Process Unspecified. EDMS 16:48 US Abdomen Limited: RUQ In Process Unspecified. EDMS 16:49 Pinzon, Keith, MD is Referral Physician. ma2 17:10 No provider procedures requiring assistance completed. IV discontinued, intact, bp bleeding controlled, No redness/swelling at site. Pressure dressing applied. Administered Medications: 16:20 Drug: Zofran (Ondansetron) 4 mg Route: IVP; Site: left antecubital; bp 17:11 Follow up: Response: Marked relief of symptoms bp 16:20 Drug: Pepcid 20 mg Route: IVP; Site: left forearm; bp 17:11 Follow up: Response: Marked relief of symptoms bp 16:20 Drug: GI Cocktail without - (Maalox Suspension 30 ml, Lidocaine Liquid 2 % 15 bp ml) Route: PO; 17:11 Follow up: Response: Marked relief of symptoms bp Outcome: 16:49 Discharge ordered by . ma2 17:10 Discharged to home ambulatory. bp 17:10 Condition: stable 17:10 Discharge instructions given to patient, Instructed on discharge instructions, follow up and referral plans. medication usage, Demonstrated understanding of instructions, follow-up care, medications, Prescriptions given X 3. 17:12 Patient left the ED. bp Signatures: Dispatcher [employer] EDMS Josseline Ahmadi Shelby, RN RN Elmo Davis RN RN bp Nilsa Patricia MD MD ma2 Tran, Leah 1
--- NOTE | 2020-01-25 16:51 | EDPHYS ---
Physician Documentation [facility] Name: Bisi Key Age: 49 yrs Sex: Female : 1970 Arrival Date: 01/25/2020 Time: 13:42 Bed 8 Private MD: ED Physician Nilsa Patricia HPI: 01/24 16:30 This 49 yrs old Female presents to ER via Ambulatory with complaints of ma2 Shortness Of Breath, Weakness, Decreased Appetite. 16:30 The patient has shortness of breath with light activity. Onset: The symptoms/episode ma2 began/occurred gradually, 2 week(s) ago. Associated signs and symptoms: Pertinent negatives: productive cough, dizziness, hemoptysis, loss of consciousness. Severity of symptoms: At their worst the symptoms were moderate in the emergency department the symptoms are unchanged. The patient has experienced similar episodes in the past. drinks alcohol 2 drinks 2-4 times a week . Historical: - Allergies: 14:13 No Known Allergies; ss - PMHx: 14:13 Anemia; ss - PSHx: 14:13 Tubal ligation; ss - Immunization history:: Adult Immunizations up to date. - Social history:: Smoking status: Patient denies any tobacco usage or history of. Patient/guardian denies using alcohol, street drugs, The patient lives with family. - Family history:: not pertinent. ROS: 16:30 Constitutional: Negative for fever, chills, and weight loss. ma2 16:30 All other systems are negative. Exam: 16:30 Constitutional: This is a well developed, well nourished patient who is awake, alert, ma2 and in no acute distress. Head/Face: Normocephalic, atraumatic. Eyes: Pupils equal round and reactive to light, extra-ocular motions intact. Lids and lashes normal. Conjunctiva and sclera are non-icteric and not injected. Cornea within normal limits. Periorbital areas with no swelling, redness, or edema. ENT: Nares patent. No nasal discharge, no septal abnormalities noted. Tympanic membranes are normal and external auditory canals are clear. Oropharynx with no redness, swelling, or masses, exudates, or evidence of obstruction, uvula midline. Mucous membranes moist. Neck: Trachea midline, no thyromegaly or masses palpated, and no cervical lymphadenopathy. Supple, full range of motion without nuchal rigidity, or vertebral point tenderness. No Meningismus. Chest/axilla: Normal chest wall appearance and motion. Nontender with no deformity. No lesions are appreciated. Cardiovascular: Regular rate and rhythm with a normal S1 and S2. No gallops, murmurs, or rubs. Normal PMI, no JVD. No pulse deficits. Respiratory: Lungs have equal breath sounds bilaterally, clear to auscultation and percussion. No rales, rhonchi or wheezes noted. No increased work of breathing, no retractions or nasal flaring. Abdomen/GI: Soft, non-tender, with normal bowel sounds. No distension or tympany. No guarding or rebound. No evidence of tenderness throughout. Skin: Warm, dry with normal turgor. Normal color with no rashes, no lesions, and no evidence of cellulitis. MS/ Extremity: Pulses equal, no cyanosis. Neurovascular intact. Full, normal range of motion. Neuro: Awake and alert, GCS 15, oriented to person, place, time, and situation. Cranial nerves II-XII grossly intact. Motor strength 5/5 in all extremities. Sensory grossly intact. Cerebellar exam normal. Normal gait. Vital Signs: 14:09 BP 116 / 86; Pulse 109; Resp 16; Temp 98.2(TE); Pulse Ox 98% on R/A; Weight 68.04 kg; ss Height 5 ft. 3 in. (160.02 cm); Pain 0/10; 16:29 BP 113 / 83; Pulse 93; Resp 16; Temp 98.1(O); Pulse Ox 99% ; lt1 17:11 BP 125 / 91; Pulse 92; Resp 17; Temp 98; Pulse Ox 99% ; bp 14:09 Body Mass Index 26.57 (68.04 kg, 160.02 cm) ss MDM: 14:08 Patient medically screened. ma2 16:30 Differential diagnosis: Anemia Bronchitis Psychogenic. Data reviewed: vital signs, ma2 nurses notes. Counseling: I had a detailed discussion with the patient and/or guardian regarding: the historical points, exam findings, and any diagnostic results supporting the discharge/admit diagnosis, the presence of at least one elevated blood pressure reading (>120/80) during this emergency department visit, the need for outpatient follow up. 01/24 14:32 Order name: Basic Metabolic Panel; Complete Time: 15:49 ma2 01/24 14:32 Order name: CBC with Diff; Complete Time: 16:23 ma2 01/24 14:32 Order name: Hepatic Function; Complete Time: 15:49 ma2 01/24 14:32 Order name: Lipase; Complete Time: 15:49 ma2 01/24 15:36 Order name: Manual Differential; Complete Time: 16:23 EDMS 01/24 15:43 Order name: Urine Dipstick--Ancillary (enter results); Complete Time: 15:49 tt3 01/24 14:32 Order name: IV Saline Lock; Complete Time: 14:56 ma2 01/24 14:32 Order name: Labs collected and sent; Complete Time: 14:56 ma2 01/24 14:32 Order name: Urine Dipstick-Ancillary (obtain specimen); Complete Time: 16:07 ma2 01/24 14:32 Order name: Chest Single View XRAY; Complete Time: 15:49 ma2 01/24 15:52 Order name: US Abdomen Limited: RUQ ma2 Administered Medications: 16:20 Drug: Zofran (Ondansetron) 4 mg Route: IVP; Site: left antecubital; bp 17:11 Follow up: Response: Marked relief of symptoms bp 16:20 Drug: Pepcid 20 mg Route: IVP; Site: left forearm; bp 17:11 Follow up: Response: Marked relief of symptoms bp 16:20 Drug: GI Cocktail without - (Maalox Suspension 30 ml, Lidocaine Liquid 2 % 15 bp ml) Route: PO; 17:11 Follow up: Response: Marked relief of symptoms bp Disposition: 01/25/20 16:49 Discharged to Home. Impression: Other disorders of bilirubin metabolism, Nausea and vomiting. - Condition is Stable. - Discharge Instructions: Nausea and Vomiting, Adult, Jaundice, Adult, [id number]. - Prescriptions for Reglan 10 mg Oral Tablet - take 1 tablet by ORAL route every 6 hours . take 30 minutes before meals and at bedtime; 100 tablet. Zofran 4 mg Oral Tablet - take 1 tablet by ORAL route every 12 hours As needed; 20 tablet. Pepcid 20 mg Oral Tablet - take 1 tablet by ORAL route once daily for 10 days; 10 tablet. - Medication Reconciliation Form, Thank You Letter, Antibiotic Education, Prescription Opioid Use form. - Follow up: Keith Pinzon; When: Tomorrow; Reason: Continuance of care. Signatures: Dispatcher [employer] Marlen Dey RN RN Elmo Hubbard RN RN Nilsa Shukla MD MD ma2 Corrections: (The following items were deleted from the chart) 17:12 16:49 01/25/2020 16:49 Discharged to Home. Impression: Other disorders of bilirubin bp metabolism; Nausea and vomiting. Condition is Stable. Discharge Instructions: Nausea and Vomiting, Adult, Jaundice, Adult, [id number]. Prescriptions for Reglan 10 mg Oral Tablet - take 1 tablet by ORAL route every 6 hours . take 30 minutes before meals and at bedtime; 100 tablet, Zofran 4 mg Oral Tablet - take 1 tablet by ORAL route every 12 hours As needed; 20 tablet, Pepcid 20 mg Oral Tablet - take 1 tablet by ORAL route once daily for 10 days; 10 tablet. and Forms are Medication Reconciliation Form, Thank You Letter, Antibiotic Education, Prescription Opioid Use. Follow up: Keith Pinzon; When: Tomorrow; Reason: Continuance of care. ma2
[2020-01-25 17:22] VITALS: O2SAT 99
[2020-01-25 17:24] VITALS: BP 125/91; TEMP 98
--- NOTE | 2020-01-25 18:22 | RAD REPORT ---
EXAM DESCRIPTION: US - Abdomen Exam Limited - 01/25/2020 4:47 pm CLINICAL HISTORY: ABD PAIN COMPARISON: Abdomen Exam Limited dated 12/27/2019 FINDINGS: The gallbladder demonstrates small sandlike gallstones as well as sludge. No pericholecyst ic fluid or gallbladder wall thickening. The common bile duct is normal measuring 4 mm. The liver demonstrates no findings of intrahepatic biliary dilatation. IMPRESSION: Cholelithiasis/gallbladder sludge without evidence of acute cholecystitis.
== END 2020-01-25 17:12 | disposition home or self-care (01) ==
LOC: ER 13:36
DX: E80.6 Other disorders of bilirubin metabolism (principal); R11.2 Nausea with vomiting, unspecified
CPT/HCPCS: 36415; 71045; 76705; 80048; 80076; 81003; 83690; 85025; 99284; J2405

== ENCOUNTER 2020-02-09 11:43 | Emergency (ER) | payer SELFPAY ==
--- NOTE | 2020-02-09 13:38 | RAD REPORT ---
EXAM DESCRIPTION: RAD - Chest Single View - 02/09/2020 1:26 pm CLINICAL HISTORY: Confusion Chest pain. COMPARISON: Chest Single View dated 01/25/2020; Chest Single View dated 12/27/2019; Abdomen Pelvis W Contrast dated 12/27/2019; Abdomen Exam Limited dated 01/25/2020 FINDINGS: Portable technique limits examination quality. Underinflated lungs with mild right pleural fluid suspected. Patchy opacity in the right lung base pr obably represents atelectasis or infiltrate. The heart is normal in size. No displaced fractures.
[2020-02-09] MEDS ORDERED: MORPHINE 2 MG/ML SYR ONE ×2 (15:32→16:28)
[2020-02-09] MEDS ORDERED: ONDANSETRON 4 MG/2 ML VIAL ONE (15:32)
[2020-02-09 15:57] LABS: Hematocrit 32.8 % (36.0-45.0); MPV 8.3 fL (7.6-11.3)
[2020-02-09 15:59] LABS: BUN Blood Urea Nitrogen 4 mg/dL (7-18); Bicarbonate 18 mmol/L (21-32); Glucose Level 68 mg/dL (74-106); Sodium Level 135 mmol/L (136-145)
[2020-02-09 16:00] LABS: ALT/SGPT 25 U/L (12-78); Albumin 1.6 g/dL (3.4-5.0); Alkaline Phosphatase 237 U/L (45-117); Bilirubin Direct 6.5 mg/dL (0-0.2); NT PRO-BNP 342 pg/mL (<125); Protein, Total 6.9 g/dL (6.4-8.2); Troponin (Emerg Dept Use Only) < 0.02 ng/mL (0.0-0.045)
[2020-02-09 16:02] LABS: AST/SGOT 206 U/L (15-37); Potassium 3.7 mmol/L (3.5-5.1)
[2020-02-09 16:03] LABS: Magnesium 1.4 mg/dL (1.8-2.4)
[2020-02-09 16:04] LABS: Bilirubin Total 8.8 mg/dL (0.2-1.0)
--- NOTE | 2020-02-09 16:09 | RAD REPORT ---
EXAM DESCRIPTION: CTAbdomen Pelvis W Contrast - 02/09/2020 3:56 pm CLINICAL HISTORY: Abdominal pain. Possible ascities;Abd pain COMPARISON: Abdomen Pelvis W Contrast dated 12/27/2019; Abdomen Exam Limited dated 01/25/2020 TECHNIQUE: Biphasic CT imaging of the abdomen and pelvis was performed with 100 ml non-ionic IV cont rast. All CT scans are performed using dose optimization technique as appropriate and may include automated exposure control or mA/KV adjustment according to patient size. FINDINGS: Atelectasis is suspected the right lung base with small bilateral pleural effusions.Cholel ithiasis is likely. The liver appears enlarged diffuse fatty liver pattern. Splenomegaly is also present, moderate pancre as, adrenal glands and left kidney are within normal limits. Moderate right hydronephrosis is present with a normal sized right ureter and no evidence of obstructing stone. Small volume of ascites is present. Enlarged fibroid uterus is present. Small fat containing umbilica l hernia. No bowel obstruction or abscess. No suspicious bony findings. IMPRESSION: Hepatomegaly with significant fatty infiltration pattern. Small volume of ascites. Moderate splenomegaly. Moderate right hydronephrosis likely related to UPJ obstruction. Cholelithiasis. Significant fibroid uterus.
[2020-02-09] MEDS ORDERED: Magnesium Sulfate 2gm IVPB 2 G/50 ML BAG IV ONE (16:16)
[2020-02-09 16:52] LABS: Anisocytosis 3+; Blood Morphology Comment NOTED (NOT SEEN); Platelet Estimate INCR; Rouleau NOTED; Target Cells FEW
--- NOTE | 2020-02-09 17:01 | RAD REPORT ---
EXAM DESCRIPTION: CT - Head Brain Wo Cont - 02/09/2020 4:54 pm CLINICAL HISTORY: CONFUSED Headache, drowsiness COMPARISON: Head Brain Wo Cont dated 12/27/2019; Abdomen Pelvis W Contrast dated 02/09/2020 TECHNIQUE: All CT scans are performed using dose optimization technique as appropriate and may inclu de automated exposure control or mA/KV adjustment according to patient size. FINDINGS: Mild residual contrast is noted from recent CT in the venous system. No intracranial hemor rhage, hydrocephalus or extra-axial fluid collection suspected.No areas of brain edema or evidence of midline shift. The paranasal sinuses and mastoids are clear. The calvarium is intact. IMPRESSION: No acute intracranial abnormality.
[2020-02-09 18:59] VITALS: TEMP 98.9
[2020-02-09 19:09] VITALS: BP 114/71; O2SAT 96
--- NOTE | 2020-02-11 18:06 | ER ---
Nurse's Notes [facility] Name: Bisi Key Age: 49 yrs Sex: Female : 1970 Arrival Date: 02/09/2020 Time: 11:46 Bed 18 Private MD: Diagnosis: Altered mental status, unspecified;Liver Failure, Hyperbilirubinemia, Hypomagnesemia Presentation: 02/08 12:01 Chief complaint: Patient states: having trouble breathing, was seen at [facility] and em released yesterday for ascites, pt denies having fluid removed from stomach, pt is jaundiced, pt states "I just feel bad, I think I am having hallucinations, I feel real weak" states she has not started her medications that she was prescribed, POC Enrrique- [phone]. Coronavirus screen: Proceed with normal triage. Patient denies a cough. Patient denies shortness of breath or difficulty breathing. Patient denies measured and/or subjective temperature greater than 100.4F prior to today's visit. Patient denies travel on a cruise ship or to a country the [facility] currently lists as an affected area. Patient denies contact with known and/or suspected case of COVID-19. Ebola Screen: Patient negative for fever greater than or equal to 101.5 degrees Fahrenheit, and additional compatible Ebola Virus Disease symptoms Patient denies exposure to infectious person. Patient denies travel to an Ebola-affected area in the 21 days before illness onset. No symptoms or risks identified at this time. Initial Sepsis Screen: Does the patient meet any 2 criteria? Altered Mental Status. No. Patient's initial sepsis screen is negative. Does the patient have a suspected source of infection? No. Patient's initial sepsis screen is negative. Risk Assessment: Do you want to hurt yourself or someone else? Patient reports no desire to harm self or others. Onset of symptoms was February 08, 2020. 12:01 Method Of Arrival: Wheelchair em 12:01 Acuity: AKASH 3 em AUTOMATION ARCHITECT: 12:06 LMP 02/09/2020 em Historical: - Allergies: 12:06 No Known Allergies; em - Home Meds: 13:58 folic acid 1 mg Oral tab 1 tab once daily [Active]; omeprazole 20 mg Oral cpDR 1 cap ca1 once daily [Active]; ferrous sulfate 325 mg (65 mg iron) Oral tab [Active]; levothyroxine 75 mcg tab 1 tab once daily [Active]; famotidine 20 mg Oral tab 1 tab once daily [Active]; ondansetron HCl 24 mg Oral tab 1 tab [Active]; metoclopramide HCl 10 mg Oral tab [Active]; - PMHx: 12:06 Anemia; Cirrhosis; em - PSHx: 12:06 Tubal ligation; em - Immunization history:: Adult Immunizations not up to date. - Social history:: Smoking status: Patient denies any tobacco usage or history of. Screenin:15 Abuse screen: Denies threats or abuse. Denies injuries from another. Nutritional ca1 screening: No deficits noted. Tuberculosis screening: No symptoms or risk factors identified. Fall Risk Secondary diagnosis (15 points) CONFUSED. IV access (20 points). Total Calvo Fall Scale indicates Low Risk Score (25-44 pts). Fall prevention measures have been instituted. Side Rails Up X 2 As available Patient and Family Educated on Fall Prevention Program and strategies. Assessment: 12:15 General: Appears in no apparent distress. Behavior is cooperative, crying. Pain: ca1 Complains of pain in right upper quadrant Pain currently is 10 out of 10 on a pain scale. Neuro: Level of Consciousness is awake, alert, confused, Oriented to person. Cardiovascular: Heart tones S1 S2 present Capillary refill < 3 seconds Patient's skin is warm and dry. Respiratory: Airway is patent Respiratory effort is even, unlabored, Respiratory pattern is regular, symmetrical, Breath sounds are clear bilaterally. GI: Abdomen is round non-distended, Bowel sounds present X 4 quads. Abd is soft X 4 quads Abdomen is tender to palpation in right upper quadrant Reports nausea. : No signs and/or symptoms were reported regarding the genitourinary system. EENT: No signs and/or symptoms were reported regarding the EENT system. EENT: Eyes ICTERIC. Derm: Skin is intact, is healthy with good turgor, Skin is dry, Skin is jaundiced, Skin temperature is warm. Musculoskeletal: Circulation, motion, and sensation intact. Capillary refill < 3 seconds. 13:23 Reassessment: Patient appears in no apparent distress at this time. No changes from ca1 previously documented assessment. 14:02 Reassessment: lab at bedside to draw initial blood work. at bedside with Dr. garett Ward to get pt's history. 14:30 Reassessment: Patient appears in no apparent distress at this time. No changes from ca1 previously documented assessment. 15:31 Reassessment: Patient appears in no apparent distress at this time. No changes from ca1 previously documented assessment. 15:49 Reassessment: Pt to CT. ca1 16:30 Reassessment: Patient appears in no apparent distress at this time. No changes from ca1 previously documented assessment. 16:49 Reassessment: PT to CT for CT head. Called for Nurse to Nurse transfer report. Report ca1 given to GAGAN Cardenas at [facility]. 17:50 Reassessment: Patient appears in no apparent distress at this time. No changes from ca1 previously documented assessment. 18:40 Reassessment: Patient appears in no apparent distress at this time. No changes from ca1 previously documented assessment. Vital Signs: 12:01 BP 102 / 80; Pulse 103; Resp 20; Temp 98.9; Pulse Ox 98% on R/A; Weight 72.57 kg; em Height 5 ft. 3 in. (160.02 cm); Pain 10/10; 13:23 BP 116 / 67; Pulse 103; Resp 16 S; Pulse Ox 100% on R/A; ca1 14:01 BP 108 / 62; Pulse 100; Resp 16 S; Pulse Ox 100% on R/A; ca1 15:00 BP 126 / 67; Pulse 100; Resp 16 S; Pulse Ox 98% on R/A; ca1 16:00 BP 116 / 69; Pulse 103; Resp 18 S; Pulse Ox 96% on R/A; ca1 16:30 BP 115 / 73; Pulse 103; Resp 15 S; Pulse Ox 96% on R/A; ca1 17:30 BP 112 / 71; Pulse 103; Resp 17 S; Pulse Ox 97% on R/A; ca1 18:40 BP 114 / 71; Pulse 102; Resp 16 S; Pulse Ox 96% on R/A; ca1 12:01 Body Mass Index 28.34 (72.57 kg, 160.02 cm) em ED Course: 11:46 Patient arrived in ED. ag5 12:05 Triage completed. em 12:06 Arm band placed on. em 12:15 Patient has correct armband on for positive identification. Bed in low position. Call ca1 light in reach. Side rails up X2. Pulse ox on. NIBP on. Warm blanket given. 12:16 Sherrie Simmons, GAGAN is Primary Nurse. ca1 12:17 Ron Ward MD is Attending Physician. kdr 13:27 XRAY Chest (1 view) In Process Unspecified. EDMS 13:33 Inserted saline lock: 22 gauge in right antecubital area, using aseptic technique. ca1 15:30 Lab(s) recollected, by me, sent to lab. Inserted saline lock: 24 gauge in left ca1 antecubital area, using aseptic technique. Blood collected. 15:45 Lab(s) recollected, by me, sent to lab. ca1 15:56 CT Abd/Pelvis - IV Contrast Only In Process Unspecified. EDMS 16:07 CT completed. Patient tolerated procedure well. Patient moved back from CT. bq 16:14 initiated a transfer with Yuko from the [facility] Transfer center. eb 16:30 administrative approval given by Faarz Amato Rn/ patient has been accepted to [facility] Emergency Room/ Dr. Vargas has accepted the patient. report to be called to [phone]. 16:49 No provider procedures requiring assistance completed. Patient transferred, IV remains ca1 in place. 16:54 CT completed. Patient tolerated procedure well. Patient moved back from CT. bq 16:54 CT Head Brain wo Cont In Process Unspecified. EDMS Administered Medications: 15:30 Drug: Zofran (Ondansetron) 4 mg Route: IVP; Site: right antecubital; ca1 16:41 Follow up: Response: No adverse reaction; Nausea is decreased ca1 15:33 Drug: morphine 2 mg Route: IVP; Site: right antecubital; ca1 16:20 Follow up: Response: No adverse reaction; Pain is unchanged, physician notified; RASS: ca1 Alert and Calm (0) 16:15 Drug: Magnesium Sulfate 2 grams Route: IVPB; Infused Over: 2 hrs; Site: right ca1 antecubital; 18:20 Follow up: Response: No adverse reaction; IV Status: Completed infusion ca1 16:23 Drug: morphine 2 mg Route: IVP; Site: right antecubital; ca1 17:00 Follow up: Response: No adverse reaction; Pain is decreased; RASS: Alert and Calm (0) ca1 Outcome: 16:20 ER care complete, transfer ordered by . kdr 18:48 Transferred by ground EMS to other acute care facility: [facility] Transfer form ca1 completed. X-rays sent w/ patient. 18:48 Condition: stable 18:48 Instructed on the need for transfer. 18:49 Patient left the ED. ca1 Signatures: Dispatcher [employer] Ron Gross MD MD kdr Quilty, Betty bq Munoz, Edgar RN RN em Gema Bowman Cheryl, RN RN ca1 Lolita Diallo ag5 Corrections: (The following items were deleted from the chart) 14:03 12:15 GI: Abdomen is round distended, Bowel sounds present X 4 quads. Abdomen is tender ca1 to palpation in right upper quadrant Reports nausea, ca1
--- NOTE | 2020-02-11 18:06 | EDPHYS ---
Physician Documentation [facility] Name: Bisi Key Age: 49 yrs Sex: Female : 1970 Arrival Date: 02/09/2020 Time: 11:46 Bed 18 Private MD: ED Physician Ron Ward HPI: 02/08 16:20 This 49 yrs old Female presents to ER via Wheelchair with complaints of kdr Doesn't Feel Right. 16:20 The patient was discharged from [facility] yesterday. She was in there for nine days kdr according to the patient and . They are unclear as to what her diagnosis was or anything else about her treatment. 17:45 Onset: The symptoms/episode began/occurred this morning. Severity of symptoms: At their kdr worst the symptoms were moderate in the emergency department the symptoms are unchanged. The patient has not experienced similar symptoms in the past. The patient was discharged from [facility] yesterday. She had been an inpatient for nine days. 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 - Social history:: Smoking status: Patient denies any tobacco usage or history of. ROS: 17:45 Constitutional: Negative for fever, chills, and weight loss, Eyes: Negative for injury, kdr pain, redness, and discharge, ENT: Negative for injury, pain, and discharge, Neck: Negative for injury, pain, and swelling, Cardiovascular: Negative for chest pain, palpitations, and edema, Respiratory: Negative for shortness of breath, cough, wheezing, and pleuritic chest pain, Abdomen/GI: Negative for abdominal pain, nausea, vomiting, diarrhea, and constipation, Back: Negative for injury and pain, : Negative for injury, bleeding, discharge, and swelling, MS/Extremity: Negative for injury and deformity, Allergy/Immunology: Negative for hives, rash, and allergies, Endocrine: Negative for neck swelling, polydipsia, polyuria, polyphagia, and marked weight changes, Hematologic/Lymphatic: Negative for swollen nodes, abnormal bleeding, and unusual bruising. 17:45 Skin: Positive for ecchymosis. 17:45 Neuro: Positive for altered mental status, weakness, Confusion. kdr Exam: 17:54 Constitutional: This is a well developed, well nourished patient who is awake, alert, kdr and in no acute distress. Head/Face: Normocephalic, atraumatic. Eyes: Pupils equal round and reactive to light, extra-ocular motions intact. Lids and lashes normal. Conjunctiva and sclera are non-icteric and not injected. Cornea within normal limits. Periorbital areas with no swelling, redness, or edema. Neck: Trachea midline, no thyromegaly or masses palpated, and no cervical lymphadenopathy. Supple, full range of motion without nuchal rigidity, or vertebral point tenderness. No Meningismus. Chest/axilla: Normal chest wall appearance and motion. Nontender with no deformity. No lesions are appreciated. Cardiovascular: Regular rate and rhythm with a normal S1 and S2. No gallops, murmurs, or rubs. Normal PMI, no JVD. No pulse deficits. Respiratory: Lungs have equal breath sounds bilaterally, clear to auscultation and percussion. No rales, rhonchi or wheezes noted. No increased work of breathing, no retractions or nasal flaring. Back: No spinal tenderness. No costovertebral tenderness. Full range of motion. MS/ Extremity: Pulses equal, no cyanosis. Neurovascular intact. Full, normal range of motion. Psych: Awake, alert, with orientation to person, place and time. Behavior, mood, and affect are within normal limits. 17:54 Neuro: Orientation: Confused, Mentation: able to follow commands, slow to respond, confused, Moving all extremities. Vital Signs: 12:01 BP 102 / 80; Pulse 103; Resp 20; Temp 98.9; Pulse Ox 98% on R/A; Weight 72.57 kg; em Height 5 ft. 3 in. (160.02 cm); Pain 10/10; 13:23 BP 116 / 67; Pulse 103; Resp 16 S; Pulse Ox 100% on R/A; ca1 14:01 BP 108 / 62; Pulse 100; Resp 16 S; Pulse Ox 100% on R/A; ca1 15:00 BP 126 / 67; Pulse 100; Resp 16 S; Pulse Ox 98% on R/A; ca1 16:00 BP 116 / 69; Pulse 103; Resp 18 S; Pulse Ox 96% on R/A; ca1 16:30 BP 115 / 73; Pulse 103; Resp 15 S; Pulse Ox 96% on R/A; ca1 17:30 BP 112 / 71; Pulse 103; Resp 17 S; Pulse Ox 97% on R/A; ca1 18:40 BP 114 / 71; Pulse 102; Resp 16 S; Pulse Ox 96% on R/A; ca1 12:01 Body Mass Index 28.34 (72.57 kg, 160.02 cm) em MDM: 16:20 Patient medically screened. kdr 17:54 Data reviewed: vital signs, nurses notes, lab test result(s), radiologic studies. kdr Counseling: I had a detailed discussion with the patient and/or guardian regarding: the historical points, exam findings, and any diagnostic results supporting the discharge/admit diagnosis, lab results, radiology results, the need to transfer to another facility. 02/08 13:10 Order name: Basic Metabolic Panel; Complete Time: 16: kdr 02/08 13:10 Order name: CBC with Diff; Complete Time: 18:00 kdr 02/08 13:10 Order name: LFT's; Complete Time: 16: kdr 02/08 13:10 Order name: Magnesium; Complete Time: 16: kdr 02/08 13:10 Order name: NT PRO-BNP; Complete Time: 16:07 kdr 02/08 13:10 Order name: Troponin (emerg Dept Use Only); Complete Time: 16: kdr 02/08 13:10 Order name: XRAY Chest (1 view); Complete Time: 15:14 kdr 02/08 13:10 Order name: ETOH Level; Complete Time: 15:32 kdr 02/08 13:10 Order name: AMMONIA; Complete Time: 16:02 kdr 02/08 15:14 Order name: CT Abd/Pelvis - IV Contrast Only; Complete Time: 16:11 [facility] 02/08 15:59 Order name: Manual Differential; Complete Time: 18:00 EDOK 02/08 16:31 Order name: CT Head Brain wo Cont; Complete Time: 18:00 kdr 02/08 13:10 Order name: Cardiac monitoring; Complete Time: 13:32 kdr 02/08 13:10 Order name: EKG - Nurse/Tech; Complete Time: 13:47 kdr 02/08 13:10 Order name: IV Saline Lock; Complete Time: 13:33 kdr 02/08 13:10 Order name: Labs collected and sent; Complete Time: : kdr 02/08 13:10 Order name: O2 Per Protocol; Complete Time: : kdr 02/08 13:10 Order name: O2 Sat Monitoring; Complete Time: :33 kdr Administered Medications: 15:30 Drug: Zofran (Ondansetron) 4 mg Route: IVP; Site: right antecubital; ca1 16:41 Follow up: Response: No adverse reaction; Nausea is decreased ca1 15:33 Drug: morphine 2 mg Route: IVP; Site: right antecubital; ca1 16:20 Follow up: Response: No adverse reaction; Pain is unchanged, physician notified; RASS: ca1 Alert and Calm (0) 16:15 Drug: Magnesium Sulfate 2 grams Route: IVPB; Infused Over: 2 hrs; Site: right ca1 antecubital; 18:20 Follow up: Response: No adverse reaction; IV Status: Completed infusion ca1 16:23 Drug: morphine 2 mg Route: IVP; Site: right antecubital; ca1 17:00 Follow up: Response: No adverse reaction; Pain is decreased; RASS: Alert and Calm (0) ca1 Disposition: 02/09/20 16:20 Transfer ordered to [facility]. Diagnosis are Altered mental status, unspecified, Liver Failure, Hyperbilirubinemia, Hypomagnesemia . - Reason for transfer: Higher level of care. - Accepting physician is BT. - Condition is Serious. - Problem is an acute exacerbation. - Symptoms are unchanged. Signatures: Dispatcher [employer] EDRon Dias MD MD kdr Elliot Castañeda RN RN em Sherrie Simmons RN RN ca1 Corrections: (The following items were deleted from the chart) 18:49 16:20 02/09/2020 16:20 Transfer ordered to [facility]. Diagnosis is Altered ca1 mental status, unspecified; Liver Failure, Hyperbilirubinemia, Hypomagnesemia . Reason for transfer: Higher level of care. Accepting physician is BT. Condition is Serious. Problem is an acute exacerbation. Symptoms are unchanged. kdr
== END 2020-02-09 18:49 | disposition short-term general hospital (02) ==
LOC: ER 11:43
DX: K72.90 Hepatic failure, unspecified without coma (principal); E83.42 Hypomagnesemia; E80.6 Other disorders of bilirubin metabolism; D64.9 Anemia, unspecified; K74.60 Unspecified cirrhosis of liver
CPT/HCPCS: 36415; 70450; 71045; 74177; 80048; 80076; 80320; 82140; 83735; 83880; 84484; 85025; 93005; 96365; 96366; 96375; 99285; J2270; J2405; J3475; Q9967

== ENCOUNTER 2023-08-09 10:21 | Day surgery (SDC) | payer OTHER ==
[2023-07-28 15:31] LABS: Protime INR 1.09
[2023-07-28 15:32] LABS: Absolute Lymphocytes (CBC) 1.8 K/uL (0.7-4.9); Hematocrit 39.1 % (36.0-45.0); Lymphocytes % 38.9 % (15.3-44.8); MCV 89.5 fL (80-100); MPV 7.9 fL (7.6-11.3); Platelets 241 thou/uL (152-406); RBC Red Blood Cell Count 4.37 M/uL (3.86-4.86)
[2023-07-28 16:39] LABS: Potassium 3.4 mEq/L (3.5-5.1)
--- NOTE | 2023-07-28 17:03 | RAD REPORT ---
EXAM DESCRIPTION: RAD - Chest Pa And Lat (2 Views) - 07/28/2023 3:07 pm CLINICAL HISTORY: Pre op pending cystoscopy, stent placement. Hypertension COMPARISON: Chest Single View dated 02/09/2020; Chest Single View dated 01/25/2020; Chest Single View dated 12/27/2019 TECHNIQUE: PA and lateral views of the chest were obtained. FINDINGS: The lungs are clear. Heart size is normal and central vasculature is within normal limits. No pleural effusion or pneumothorax seen. No acute bony finding noted. IMPRESSION: No acute cardiopulmonary process.
--- NOTE | 2023-07-29 14:25 | EKG ---
Test Date: 2023-07-28 Test Time: 15:19:43 Telephone Order Clerk Room Service: DENISHA MEASUREMENT RESULTS: Intervals: Rate: 64 NE: 188 QRSD: 88 QT: 390 QTc: [address] [place] [address]: P: 66 NE: 188 QRS: -45 T: 70 INTERPRETIVE STATEMENTS: Normal sinus rhythm Left axis deviation Low voltage QRS Abnormal ECG Compared to ECG 02/09/2020 13:38:30 Left-axis deviation now present Sinus tachycardia no longer present Myocardial infarct finding no longer present Electronically Signed On 07-29-23 14:22:18 PAPER LATCHER by Anselmo Josue
[2023-08-09] MEDS ORDERED: Ringers Lactate 1,000 ML IV ONE ×2 (10:51→14:42)
[2023-08-09] MEDS ORDERED: ONDANSETRON 4 MG/2 ML VIAL ONE (12:08)
[2023-08-09] MEDS ORDERED: propofoL 200 MG/20 ML VIAL IV ONE ×2 (12:08→14:11)
[2023-08-09] MEDS ORDERED: FENTANYL CITR 100 MCG/2 ML ONE (12:08)
[2023-08-09] MEDS ORDERED: MIDAZOLAM HCL 2 MG/2 ML INJ ONE ×2 (12:09→15:20)
[2023-08-09] MEDS ORDERED: CEFAZOLIN SODIUM 1 GM/VIAL ONE (14:02)
[2023-08-09] MEDS ORDERED: dexAMETHasone 10 MG/ML VIAL ONE (14:40)
[2023-08-09] MEDS: HYDROMORPHONE HCL 1 MG/ML INJ ONE ×2 (15:38→15:45)
--- NOTE | 2023-08-09 15:38 | RAD REPORT ---
EXAM DESCRIPTION: RAD - Urethrocystogrphy Retrograde - 08/09/2023 3:29 pm CLINICAL HISTORY: RT RETROGRADE PYELOGRAM COMPARISON: <Comparisons> FINDINGS: Total fluoro time: 36 seconds
[2023-08-09] MEDS ORDERED: CODEINE 30MG/APAP 300MG TAB PO PRN (15:41)
[2023-08-09] MEDS ORDERED: PHENAZOPYRIDINE 100MG TAB PO ONE (15:41)
--- NOTE | 2023-08-09 16:10 | OP ---
Surgeon: OMAIRA ALVA Preoperative Diagnoses: 1. Right hydronephrosis. 2. Right ureteropelvic junction obstruction. 3. History of nephroureterolithiasis. Postoperative Diagnoses: 1. Right hydronephrosis. 2. Right ureteropelvic junction obstruction. 3. History of nephroureterolithiasis. 4. Meatal stenosis. 5. Odoriferous right renal urine. Principal Procedures: 1. Cystoscopy. 2. Urethral dilation using sounds. 3. Right retrograde pyelography. 4. Right renal aspirate urine culture. 5. Right 7-Zimbabwean x 26 cm ureteral stent placement. Findings: 1 to 2 cm of UPJ obstruction/narrowing observed. Indication For Procedure: Ms. Key presented to the Urology Clinic having previously undergone multiple episodes of recurrent right ureterolithiasis requiring surgical intervention, and she had a history of recurrent urinary tract infections associated. She underwent CT of the abdomen and pelvis without contrast on 07/15/2023 revealing chronic right UPJ obstruction as well as the presence of bilateral nonobstructing renal calculi. No obstructing calculus again was noted. 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 Given the significant hydronephrosis and the potential for either ureteral stricture disease, given her multiple prior stone events, or an anatomic ureteropelvic junction obstruction, she was recommended for surgical decompression and evaluation with potential repair. Procedure In Detail: The patient was consented in the preoperative holding area before being transferred to the operative suite where general anesthesia was induced. She was given Ancef 1 g IV antimicrobial prophylaxis, and pneumo boots were provided for DVT prophylaxis. She was placed in the lithotomy position, padded and secured to the table appropriately, and her genitalia were prepped with Hibiclens and draped in standard fashion. The case was begun attempting to pass the 22-Zimbabwean rigid cystoscope via her meatus into her bladder, but there was significant stenosis of the meatus that prevented passage of the scope. As a result, I required ureteral sounds to dilate her urethra from 18-Zimbabwean to 26- Zimbabwean in order to successfully pass in the 22-Zimbabwean cystoscope with the blunt tipped obturator. Of note, attempts to use the obturator to dilate the meatus was also impossible due to the stenotic opening. Once in the bladder, I decompressed it of fluid and urine, and there was evidence of mild residual cystitis cystica throughout, but largely no significant signs of infection. The ureteral orifices were orthotopic in location, and the urine was clear. There were no papillary mucosal lesions, foreign bodies or stones noted throughout. I thus cannulated the right ureteral orifice using a 5-Zimbabwean ureteral access catheter. Right retrograde pyelography: Using a 70:30 mixture of Omnipaque and saline, contrast was injected via the lumen of the 5-Zimbabwean ureteral access catheter and did propagate up to distal into the mid and proximal ureter where it reached a point of obstruction, delayed nephrogram, and the narrowing of the ureter that appeared to be likely 1 to 2 cm in length before entering a massively dilated renal pelvis with marked caliectasis. Additional contrast bolus did confirm the suspicion of this obstruction at the ureteropelvic junction. I thus passed a Sensor wire via the 5-Zimbabwean ureteral access catheter and coiled it within the putative mid pole calices of the kidney. Over the Sensor wire, I removed the 5-Zimbabwean ureteral access catheter and passed a dual-lumen catheter into the renal pelvis and calices as observed fluoroscopically. As the urine began to decompress, and drain from the second lumen of the dual-lumen catheter, as I was preparing to pass a Vgiftson guidewire in order to perform definitive evaluation with ureteroscopy, we observed a significant odor emanating from the urine draining from the right renal unit. As a result, I collected a sample of that urine which was sent for culture as left renal aspirate urine culture. Because the smell was significant and I had a significant concern for actual underlying infection that may have been inadequately treated coming out of the obstructed right kidney, to avoid the risk of precipitating sepsis associated with ureteroscopy with pressurized irrigation, I elected to forego that and instead removed the dual-lumen catheter and backloaded the cystoscope over the safety wire. I then passed under direct vision a 7-Zimbabwean x 26 cm double-J ureteral stent into the right kidney with a coil observed fluoroscopically in the renal pelvis and one cystoscopically formed in her bladder. I then decompressed her bladder of fluid and urine, and removed the cystoscope. She was then awakened from general anesthesia, transferred to a stretcher, and then transferred to the recovery room in good condition. Complications: None. Discharge Disposition: We will follow up the results of the right renal aspirate urine culture and ensure she is adequately treated with at least 7 to 10 days of a tissue penetrating antimicrobial to clear any infection present there. I did send in a 10-day prescription for cephalexin since any infected urine is likely the same as that identified preoperatively. Followup will subsequently be required to assess the source of the obstruction at the UPJ. We will arrange for her a CT angiogram (CT with IV contrast) of the abdomen (only) to assess for a crossing right renal vessel, if no prior CT scans available in our records were done with IV contrast phased imaging. If no crossing vessel observed, subsequent followup with definitive ureteroscopy and investigation for stricture and management of the stricture will be required. YUDY/LINDA Voice ID: [id number] Report ID: [id number] APRYL
[2023-08-09 17:11] VITALS: O2SAT 100
[2023-08-09 17:12] VITALS: BP 129/95; TEMP 97
== END 2023-08-09 16:47 | disposition home or self-care (01) ==
LOC: OR 10:21
PROVIDERS: ATTEND Urology
PROC: 0WHR8YZ Insertion of Other Device into Genitourinary Tract, Via Natural or Artificial Opening Endoscopic (ICD-10-PCS; principal; 2023-08-09 12:45)
DX: N13.0 Hydronephrosis with ureteropelvic junction obstruction (principal); N35.92 Unspecified urethral stricture, female; N39.0 Urinary tract infection, site not specified
CPT/HCPCS: 52332; 93005; 87088 ×2; 85025; 87086 ×2; 80048; 36415; 85610; 87077; 87186; 71046; 74450; 51610; J2704 ×2; J2250 ×2; J3010; J1100; J1170; J2405; J7120 ×2; J0690

== ENCOUNTER → 2023-10-13 | Emergency (ER) | payer OTHER ==
[~2023-10-13] MED LIST: HYDROCODONE/APAP 5/325 MG TAB ONE
[2023-10-13 19:23] LABS: Absolute Lymphocytes (CBC) 2.3 K/uL (0.7-4.9); Hematocrit 38.2 % (36.0-45.0); Lymphocytes % 46.2 % (15.3-44.8); MCV 88.2 fL (80-100); MPV 7.3 fL (7.6-11.3); Platelets 216 thou/uL (152-406); RBC Red Blood Cell Count 4.34 M/uL (3.86-4.86)
[2023-10-13 19:27] LABS: Specific Gravity 1.007 (1.005-1.030); Urine Bacteria <20 /HPF (<20); Urine Bilirubin NEGATIVE (Negative); Urine Blood 3+ (OVER) (Negative); Urine Clarity Extremely Turbid (Clear); Urine Color Light-Brown (Yellow); Urine Glucose NEGATIVE (Negative); Urine Mucus Slight /HPF (None Seen); Urine Protein 1+ (Negative); Urine RBC >50 /HPF (None Seen); Urine Urobilinogen Normal (Normal)
[2023-10-13 19:37] LABS: Potassium 3.6 mEq/L (3.5-5.1)
--- NOTE | 2023-10-13 21:42 | ER ---
Nurse's Notes [facility] Name: Bisi Key Age: 53 yrs Sex: Female : 1970 Arrival Date: 10/13/2023 Time: 18:29 Bed 5 Private MD: Diagnosis: Right flank pain Presentation: 10/13 18:44 Chief complaint: Patient states: URINARY SYMPTOMS HX OF URINARY STENT ON RIGHT SIDE. db STATES ANTIBIOTICS ARE NOT WORKING. Coronavirus screen: Client denies travel out of the [place] in the last 14 days. At this time, the client does not indicate any symptoms associated with coronavirus-19. Ebola Screen: Patient negative for fever greater than or equal to 101.5 degrees Fahrenheit, and additional compatible Ebola Virus Disease symptoms Patient denies exposure to infectious person. Patient denies travel to an Ebola-affected area in the 21 days before illness onset. No symptoms or risks identified at this time. Initial Sepsis Screen: Does the patient meet any 2 criteria? No. Patient's initial sepsis screen is negative. Does the patient have a suspected source of infection? No. Patient's initial sepsis screen is negative. Risk Assessment: Do you want to hurt yourself or someone else? Patient reports no desire to harm self or others. Onset of symptoms. 18:44 Method Of Arrival: Ambulatory db 18:44 Acuity: AKASH 3 db Triage Assessment: 18:44 General: Appears in no apparent distress. uncomfortable, Behavior is cooperative, db anxious. Pain: Complains of pain in back. Neuro: Level of Consciousness is awake, alert, obeys commands, Oriented to person, place, time, situation. Respiratory: Airway is patent Respiratory effort is even, unlabored, Respiratory pattern is regular, symmetrical. 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 - Social history:: Smoking status: Patient denies any tobacco usage or history of. Screenin:56 [facility] ED Fall Risk Assessment (Adult) History of falling in the last 3 months, jb4 including since admission No falls in past 3 months (0 pts). Abuse screen: Denies threats or abuse. Nutritional screening: No deficits noted. Tuberculosis screening: No symptoms or risk factors identified. Assessment: 19:05 General: Appears uncomfortable, Behavior is calm, cooperative, appropriate for age. ha1 Pain: Complains of pain in pelvis Pain radiates to back Pain at worst was 10 out of 10 on a pain scale. Quality of pain is described as burning, throbbing, Pain began gradually, 2-3 days ago. Is continuous. Neuro: Level of Consciousness is awake, alert, obeys commands, Oriented to person, place, time, situation. Cardiovascular: Capillary refill Patient's skin is warm and dry. Respiratory: Airway is patent Respiratory effort is even, unlabored, Respiratory pattern is regular, symmetrical. GI: No signs and/or symptoms were reported involving the gastrointestinal system. Abdomen is flat, non-distended. : Urine is cloudy, Reports burning with urination, incontinence, pain flank(s), urgency, urinary frequency. Derm: Skin is pink, warm \T\ dry. 20:00 Reassessment: Patient appears in no apparent distress at this time. Patient and/or jb4 family updated on plan of care and expected duration. Pain level reassessed. Patient is alert, oriented x 3, equal unlabored respirations, skin warm/dry/pink. 21:38 Reassessment: Patient appears in no apparent distress at this time. Patient and/or jb4 family updated on plan of care and expected duration. Pain level reassessed. Patient is alert, oriented x 3, equal unlabored respirations, skin warm/dry/pink. Vital Signs: 18:44 BP 140 / 99; Pulse 83; Resp 18; Pulse Ox 98% ; Weight 68.04 kg; Height 5 ft. 2 in. ; db 19:21 BP 142 / 98; Pulse 65; Resp 17; Pulse Ox 98% on R/A; ha1 20:00 BP 130 / 84; Pulse 67; Resp 16; Pulse Ox 100% on R/A; jb4 21:30 BP 138 / 98; Pulse 68; Resp 16; Pulse Ox 98% on R/A; jb4 18:44 Body Mass Index 27.44 (68.04 kg, 157.48 cm) db ED Course: 18:31 Patient arrived in ED. ra3 18:31 Miquel Ventura DO is Attending Physician. ms3 18:45 Triage completed. db 18:45 Arm band placed on Patient placed in an exam room. db 19:17 Urinalysis w/ reflexes Sent. ha1 19:17 BMP Sent. ha1 19:17 CBC with Diff Sent. ha1 19:57 Attending Physician role handed off by Miquel Ventura DO ms3 19:57 Garret Veras MD is Attending Physician. ms3 21:38 Simon Licea, RN is Primary Nurse. jb4 21:58 No provider procedures requiring assistance completed. IV discontinued, intact, jb4 bleeding controlled, No redness/swelling at site. Pressure dressing applied. Administered Medications: 19:42 Drug: HYDROcodone-acetaminophen PO 5 mg-325 mg 1 tabs PO once Route: PO; ha1 Outcome: 21:42 Discharge ordered by . rt 21:58 Discharged to home ambulatory, jb4 21:58 Condition: stable 21:58 Discharge instructions given to patient, Instructed on discharge instructions, follow up and referral plans. Demonstrated understanding of instructions, follow-up care, 21:58 Patient left the ED. jb4 Signatures: Simon Licea RN RN jb4 Miquel Ventura DO DO ms3 Afshan Hernandez RN RN ha1 Jacey Wong RN RN db Garret Veras MD MD rt Brandi Beauchamp ra3 Corrections: (The following items were deleted from the chart) 18:48 18:44 BP 140 / 99; Pulse 83bpm; Resp 18bpm; Pulse Ox 98%; db db
--- NOTE | 2023-10-13 21:42 | EDPHYS ---
Physician Documentation [facility] Name: Bisi Key Age: 53 yrs Sex: Female : 1970 Arrival Date: 10/13/2023 Time: 18:29 Bed 5 Private MD: ED Physician Garret Veras HPI: 10/13 18:49 This 53 yrs old Female presents to ER via Ambulatory with complaints of Urinary Problem.ms3 18:49 53-year-old female with past medical history of anemia cirrhosis presents to the [facility] emergency department for right flank pain. Patient states she has a stent placed by Dr. Palencia and is supposed to have a procedure to remove the stent on October 18. Patient states she is currently on antibiotic that Dr. Palencia placed her on after her urine became infected. Patient states she is currently having urinary incontinence, bleeding with urination. Patient denies fevers, chills. Patient endorses suprapubic pressure.. 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 - Social history:: Smoking status: Patient denies any tobacco usage or history of. ROS: 18:49 Positive for urinary symptoms, urinary frequency, ms3 18:49 Neck: Negative for injury, pain, and swelling, Cardiovascular: Negative for chest pain, and palpitations. Respiratory: Negative for shortness of breath, cough, wheezing, and pleuritic chest pain, Abdomen/GI: Negative for abdominal pain, nausea, vomiting, diarrhea, and constipation, MS/Extremity: Negative for injury and deformity, Skin: Negative for injury, rash, and discoloration, Neuro: Negative for headache, weakness, numbness, tingling. 18:49 All other systems are negative, Exam: 18:49 Constitutional: This is a well developed, well nourished patient who is awake, alert, ms3 and in no acute distress. Head/Face: Normocephalic, atraumatic. Chest/axilla: Normal chest wall appearance and motion. Nontender with no deformity. Cardiovascular: Regular rate and rhythm with a normal S1 and S2. No gallops, murmurs, or rubs. Normal PMI, no JVD. No pulse deficits. Respiratory: Lungs have equal breath sounds bilaterally, clear to auscultation and percussion. No rales, rhonchi or wheezes noted. No increased work of breathing, no retractions or nasal flaring. Abdomen/GI: Soft, non-tender, with normal bowel sounds. No distension or tympany. No guarding or rebound. No evidence of tenderness throughout. Skin: Warm, dry with normal turgor. Normal color with no rashes, no lesions, and no evidence of cellulitis. MS/ Extremity: Pulses equal, no cyanosis. Neurovascular intact. Full, normal range of motion. Neuro: Awake and alert, GCS 15, oriented to person, place, time, and situation. Cranial nerves II-XII grossly intact. Motor strength 5/5 in all extremities. Sensory grossly intact. Cerebellar exam normal. Normal gait. Vital Signs: 18:44 BP 140 / 99; Pulse 83; Resp 18; Pulse Ox 98% ; Weight 68.04 kg; Height 5 ft. 2 in. ; db 19:21 BP 142 / 98; Pulse 65; Resp 17; Pulse Ox 98% on R/A; ha1 20:00 BP 130 / 84; Pulse 67; Resp 16; Pulse Ox 100% on R/A; jb4 21:30 BP 138 / 98; Pulse 68; Resp 16; Pulse Ox 98% on R/A; jb4 18:44 Body Mass Index 27.44 (68.04 kg, 157.48 cm) db MDM: 18:49 Differential diagnosis: urinary tract infection, Dysuria versus urinary stent ms3 discomfort. 18:52 Patient medically screened. ms3 19:57 Transition of care: After a detail discussion of the patient's case, care is ms3 transferred to Garret Veras MD. 22:31 Data reviewed: vital signs, nurses notes, EKG. I considered the following discharge rt prescriptions or medication management in the emergency department Medications were administered in the Emergency Department. See MAR. Test considered but Not performed: CT: Patient already has a stent in place, is urinating without difficulty, stable creatinine, no evidence of infection, CT scan not indicated. Counseling: I had a detailed discussion with the patient and/or guardian regarding the historical points, exam findings, and any diagnostic results supporting the discharge/admit diagnosis, lab results, the need for outpatient follow up. Response to treatment: the patient's symptoms have mildly improved after treatment. 10/13 18:49 Order name: CBC with Diff; Complete Time: 19:31 ms3 10/13 18:49 Order name: BMP; Complete Time: 20:42 ms3 10/13 18:49 Order name: Urinalysis w/ reflexes; Complete Time: 20:42 ms3 10/13 19:34 Order name: Urine Culture EDMS Administered Medications: 19:42 Drug: HYDROcodone-acetaminophen PO 5 mg-325 mg 1 tabs PO once Route: PO; ha1 Disposition Summary: 10/13/23 21:42 Discharge Ordered Notes: Location: Home rt Problem: an ongoing problem rt Symptoms: have improved rt Condition: Stable rt Diagnosis - Right flank pain rt Followup: rt - With: Private Physician - When: 5 - 6 days - Reason: Discharge Instructions: - Discharge Summary Sheet rt - Flank Pain, Adult rt Forms: - Medication Reconciliation Form rt - Thank You Letter rt - Antibiotic Education rt - Prescription Opioid Use rt - Patient Portal Instructions rt - Leadership Thank You Letter rt Prescriptions: - acetaminophen-codeine 300-30 mg Oral tablet - take 1 tablet ORAL route every 6 hours as needed for pain; 18 tablet; Refills: rt 0, Product Selection Permitted Signatures: Dispatcher [employer] EDMS Miquel Ventura DO DO ms3 Afshan Hernandez RN RN ha1 Jacey Wong RN RN db Garret Veras MD MD rt
[2023-10-13 22:45] VITALS: BP 138/98; O2SAT 98
== END ==
LOC: ER 18:29
DX: R10.9 Unspecified abdominal pain (principal)
CPT/HCPCS: 36415; 80048; 81001; 85025; 87086; 87088

== ENCOUNTER 2023-10-18 09:15 | Day surgery (SDC) | payer OTHER ==
[2023-09-26 13:35] LABS: Absolute Lymphocytes (CBC) 2.2 K/uL (0.7-4.9); Hematocrit 41.9 % (36.0-45.0); Lymphocytes % 41.6 % (15.3-44.8); MPV 7.4 fL (7.6-11.3); Platelets 246 thou/uL (152-406)
[2023-09-26 13:40] LABS: Protime INR 1.09
[2023-09-26 13:47] LABS: Potassium 3.6 mEq/L (3.5-5.1)
[2023-10-18] MEDS ORDERED: Ringers Lactate 1,000 ML IV ONE (09:43)
[2023-10-18] MEDS ORDERED: propofoL 200 MG/20 ML VIAL IV ONE (10:22)
[2023-10-18] MEDS ORDERED: LIDOCAINE 1% MPF 5 ML VIAL ONE (10:22)
[2023-10-18] MEDS ORDERED: MIDAZOLAM HCL 2 MG/2 ML INJ ONE (10:23)
[2023-10-18] MEDS ORDERED: ROCURONIUM 50 MG/5 ML VIAL IV ONE (10:23)
[2023-10-18] MEDS ORDERED: FENTANYL CITR 100 MCG/2 ML ONE (10:23)
[2023-10-18] MEDS ORDERED: NA CHLORIDE 0.9% 0 ML ONE (10:46)
[2023-10-18] MEDS ORDERED: ONDANSETRON 4 MG/2 ML VIAL ONE ×2 (10:56)
[2023-10-18] MEDS: CEFTRIAXONE 1000 MG/VIAL ONE ×2 (11:00→11:05)
[2023-10-18] MEDS ORDERED: NEOSTIGMINE 1 MG/ML -10 ML VIAL ONE (11:44)
[2023-10-18] MEDS ORDERED: GLYCOPYRROLATE 0.2 MG/ML SYR ONE (11:44)
[2023-10-18] MEDS ORDERED: HYDROCODONE/APAP 5/325 MG TAB PO PRN (12:34)
[2023-10-18] MEDS ORDERED: MORPHINE 4 MG/ML SYR ONE (12:34)
[2023-10-18] MEDS ORDERED: PHENAZOPYRIDINE 100MG TAB PO ONE (12:34)
[2023-10-18 13:04] VITALS: O2SAT 100
--- NOTE | 2023-10-18 13:13 | RAD REPORT ---
EXAM DESCRIPTION: RAD - Urethrocystogrphy Retrograde - 10/18/2023 11:57 am CLINICAL HISTORY: rt stent COMPARISON: None available. FINDINGS: Twenty-one Images were sent to PACS, documenting fluoroscopy used during right ureteral st ent procedure. No radiologist was available for the procedure, nor will any image interpretation he p rovided. Please refer to the procedural report for additional details. Fluoroscopy time: 0.4 Minutes. IMPRESSION: Documentation of fluoroscopy utilization as above.
[2023-10-18] MEDS ORDERED: HYDROCODONE/APAP 10/325 TAB ONE (13:19)
[2023-10-18 14:08] VITALS: BP 138/87; TEMP 97.7
--- NOTE | 2023-10-18 21:59 | OP ---
Surgeon: OMAIRA ALVA Preoperative Diagnoses: 1.Right hydronephrosis. 2.Right ureteropelvic junction obstruction. 3.Recurrent right ureterolithiasis. Postoperative Diagnoses: 1.Right massive hydronephrosis. 2.Anatomic right ureteropelvic junction obstruction, possible crossing vessel, no ureteral stricture disease. Principal Procedures: 1.Cystoscopy with right ureteral stent extraction. 2.Right retrograde pyelography. 3.Right ureteroscopy. 4.Right ureteral dilation. 5.Right ureteral stent replacement with 7-English by 26 cm stent. Indication For Procedure: Ms. Key is a 53-year-old woman who was referred for right-sided hydron ephrosis in the setting of multiple recurrent episodes of ureterolithiasis, requiring surgical interv ention. She also had a history of recurrent complicated UTIs, the most recent involved E coli that w as sensitive to Keflex and Macrobid as well as Augmentin based on a culture taken from her bladder, b ut subsequent right renal aspirate urine culture following right retrograde pyelography and stent naa cement on 08/09/2023, revealed resistant E coli, sensitive to ceftriaxone and meropenem. She had bee n treated with 14 days of IV ceftriaxone with the stent in place and subsequently had some suspicion for recurrence of infection seen on a followup appointment, which prompted additional treatment with cefpodoxime for an additional 14 days. She continued on that cefpodoxime as of today's operative int ervention. She had undergone a CT angiogram, 08/31/2023, which did not identify a crossing vessel, t sathya to my review of that angiography, there were multiple branching vessels in the region of the hi lum surrounding the renal vein and potentially also the proximal ureter. Procedure In Detail: The patient was consented in the preoperative holding area before being transfe rred to the operative suite, where general anesthesia was induced. She was given ceftriaxone 1 g IV antimicrobial prophylaxis, and pneumo boots were provided for DVT prophylaxis. She was placed in the lithotomy position, padded and secured to the table appropriately, and her genitalia was prepped wit h Hibiclens before being draped in standard fashion. The case was begun using a 22-English rigid cyst oscope to traverse the urethra and into the bladder. The bladder was surveyed, and there were no pap illary mucosal lesions or stones. The stent was noted to emanate from the right ureteral orifice, an d I grasped the coil of the stent and was able to deliver the tip to the meatus leaving the proximal coil within the renal pelvis. I then passed a Sensor wire via the stent coiling it in the putative c ollecting system. The coil of the wire was with a very large circular circumference suspicious for m assive hydronephrosis despite the stent having been in place. As a result, I passed a dual-lumen cat heter over the Bentson guidewire and passed a Bentson guidewire via the second lumen of the dual-lume n catheter after I injected contrast via the second lumen of the dual-lumen catheter. Right retrograde pyelography: Injecting a 70:30 mixture of Omnipaque and saline via the second lumen of the dual-lumen catheter, the contrast did propagate up the mid and proximal ureter before going p ast a point of clear obstruction at the ureteropelvic junction before entry into a massively dilated and hydronephrotic right renal pelvis. The area of narrowing at the UPJ was approximately 1 cm in le ngth. As a result, I passed the Bentson guidewire via the second lumen of the dual-lumen catheter co iling it alongside the safety wire, and then I removed the dual-lumen catheter and passed a 5-English ureteral access catheter over the Bentson guidewire into the renal pelvis and removed the Bentson kelby dewire to attempt to let the renal pelvis passively drain. Unfortunately, it did not drain at all; s o, I then used a flexible ureteroscope, passed over the Bentson guidewire, and was able to navigate i t all the way into the collecting system. I then surveyed each of the calyces of the collecting syst em, and there were no papillary mucosal lesions or stones noted within the renal pelvis or the calyce s. The pelvis and the calyces were massively dilated with floppy-appearing material. I then gently aspirated the renal pelvis of a total of approximately 50 cc to 60 cc of clear yellow urine without a ny odor contained within the renal pelvis, just until there was radiographic evidence of diminished h ydronephrosis, but yet still moderately hydronephrotic. I did this to decrease the risk of developme nt of a subcapsular hematoma. I then utilized pressurized saline irrigation to survey down past the level of the ureteropelvic junction, looking for evidence of stricture disease or a crossing vessel. I did not identify any specific stricture dilation of the UPJ, and I also failed to identify a bleed ing arterial vessel overlying or underlying the area of narrowing at the UPJ. However, anatomic obst ruction at the right UPJ was indeed apparent; so I took a picture of that location and again removed the ureteroscope under direct vision. I then passed the dual-lumen catheter this time over the Bents on guidewire, which I replaced via the ureteroscope into the collecting system under direct vision be fore removing the ureteroscope, and I used the dual-lumen catheter to see if there was any obstructio n with passage of the 10-English diameter dual-lumen catheter. No obstruction was noted with only mil d resistance in passage beyond the UPJ over the Bentson guidewire. As a result, I allowed the renal pelvis to passively drain via the second lumen of the dual-lumen catheter before. I then utilized a 12/14-English ureteral access sheath passed over the Bentson guidewire to further assess for any stric tured narrowing or obstruction. Again, the 12/14 ureteral access sheath did pass beyond the point of obstruction with ease and no evidence of strictured narrowing related obstruction. As a result, I a llowed the renal pelvis to passively decompress via the ureteral access sheath, and then I removed it . I then back-loaded the cystoscope over the indwelling Sensor safety wire and passed a 7-English by 26 cm double-J stent. The stent was placed successfully with a coil observed fluoroscopically in the renal pelvis and one cystoscopically in her bladder. The bladder was then decompressed of fluid and urine, and the scope was removed. The patient was then taken out of the lithotomy position, awakene d from general anesthesia, transferred to a stretcher, and then transferred to the recovery room in g ood condition. Complications: None. Discharge Disposition: This is an apparent anatomic UPJ on the right, potentially secondary to a public health microbiologist ssing vessel, but not definitively demonstrated. No strictured narrowing was observed, and despite a 6-English stent being in place, the kidney remained massively hydronephrotic. As a result, she now h as a 7-English stent in place, but she will likely require definitive surgical correction via pyelopla sty. As a result, I will see her back in followup, where we will arrange MAG [facility] degree of split renal function to confirm adequate function of the kidney before proceeding with reconstructive surge ry. YUDY/MODL Voice ID: [id number] Report ID: [id number]
== END 2023-10-18 13:48 | disposition home or self-care (01) ==
LOC: OR 09:15
PROVIDERS: ATTEND Urology
PROC: 0T768DZ Dilation of Right Ureter with Intraluminal Device, Via Natural or Artificial Opening Endoscopic (ICD-10-PCS; principal; 2023-10-18 10:30)
DX: Q62.11 Congenital occlusion of ureteropelvic junction (principal); R39.9 Unspecified symptoms and signs involving the genitourinary system; R32 Unspecified urinary incontinence; N13.5 Crossing vessel and stricture of ureter without hydronephrosis; T83.8 Other specified complications of genitourinary prosthetic devices, implants and grafts; Z87.440 Personal history of urinary (tract) infections
CPT/HCPCS: 85025; 80048; 36415; 85610; 74450; 51610; 52344; 52332; J2704; J2710; J2001; J2250; J3010; J2405 ×2; J7120; J0696

== ENCOUNTER 2024-08-14 07:16 | Day surgery (SDC) | payer OTHER ==
[2024-08-08 10:40] LABS: Absolute Eosinophils 0.1 K/uL (0-0.5); Absolute Lymphocytes (CBC) 1.7 K/uL (0.7-4.9); Absolute Monocytes 0.2 K/uL (0.1-1.3); Absolute Neutrophil 1.9 K/uL (1.8-8.0); Basophils % 0.4 % (0-1.3); Eosinophils % 1.7 % (0-4.4); Hemoglobin 11.9 g/dL (12.0-15.0); Lymphocytes % 43.7 % (15.3-44.8); MCH 29.2 pg (27.0-35.0); MCHC 32.2 g/dL (32.0-36.0); MCV 90.6 fL (80-100); MPV 7.7 fL (7.6-11.3); Neutrophils % 48.2 % (41.7-73.7); Nucleated Red Blood Cells % 0.1 % (0-0); Platelets 228 thou/uL (152-406); RBC Red Blood Cell Count 4.08 M/uL (3.86-4.86); Red Cell Distribution Width 13.8 % (12.1-15.2)
[2024-08-08 10:41] LABS: PT Prothrombin Time 11.1 SECONDS (9.4-12.5); Protime INR 0.99
--- NOTE | 2024-08-08 11:30 | EKG ---
Test Date: 2024-08-08 Test Time: 11:21:35 Telegraphic Typewriter Operator: DENISHA MEASUREMENT RESULTS: Intervals: Rate: 56 IL: 196 QRSD: 84 QT: 412 QTc: 397 [place]: P: 74 IL: 196 QRS: -63 T: 70 INTERPRETIVE STATEMENTS: Sinus bradycardia Left axis deviation Low voltage QRS Abnormal ECG Compared to ECG 02/03/2024 11:58:45 Myocardial infarct finding no longer present Electronically Signed On 08-08-24 11:30:20 INJECTION MOLDING PROCESS TECHNICIAN by Clark Sanchez
--- NOTE | 2024-08-08 12:51 | RAD REPORT ---
EXAMINATION: TWO VIEW CHEST XR CLINICAL INDICATION: Female, 54 years old. [facility] Pre-op pending cystoscopy with retrograde pyelogra TECHNIQUE: 2 view radiographs of the chest were performed. COMPARISON: 02/02/2024 FINDINGS: The lungs are well inflated and clear. No pneumothorax or sizable effusion. The heart is normal in si ze. Mediastinal contours are unremarkable. IMPRESSION: No acute or significant abnormalities.
[2024-08-14] MEDS: Ringers Lactate 1,000 ML IV ONE (07:55)
[2024-08-14] MEDS ORDERED: propofoL 200 MG/20 ML VIAL IV ONE (09:04)
[2024-08-14] MEDS ORDERED: FENTANYL CITR 100 MCG/2 ML ONE (09:04)
[2024-08-14] MEDS ORDERED: MIDAZOLAM HCL 2 MG/2 ML INJ ONE (09:04)
[2024-08-14] MEDS ORDERED: ONDANSETRON 4 MG/2 ML VIAL ONE (09:04)
[2024-08-14] MEDS ORDERED: KETOROLAC 30 MG/ML INJ ONE (09:04)
[2024-08-14] MEDS ORDERED: dexAMETHasone 10 MG/ML VIAL ONE (09:04)
[2024-08-14] MEDS ORDERED: LIDOCAINE 1% MPF 5 ML VIAL ONE (09:05)
[2024-08-14] MEDS ORDERED: DEXMEDETOMIDINE HCL 200 MCG/2 ML VIAL ONE (09:15)
[2024-08-14] MEDS: CEFAZOLIN SODIUM 1 GM/VIAL ONE (09:15)
[2024-08-14] MEDS ORDERED: GLYCOPYRROLATE 0.2 MG/ML SYR ONE (09:30)
--- NOTE | 2024-08-14 10:53 | P.OP ---
Date of Service: 08/14/24 Preoperative diagnoses: Right hydronephrosis s/p right Y-V pyeloplasty Postoperative diagnoses: Chronic right hydronephrosis s/p right Y-V pyeloplasty Principal procedures: Cystoscopy Right retrograde pyelography Right ureteral calibration to 14 Martiniquais without obstruction seen or encountered Indication for procedure: 54-year-old woman with history of chronic right hydronephrosis secondary to UPJ obstruction who underwent Y-V pyeloplasty several months ago and was seen in follow-up monitoring for signs of residual obstruction. Ultrasound revealed an expected degree of chronic hydronephrosis, and nuclear medicine renography suggested delayed drainage, but not significantly worse than preoperatively with the stent in place. As a result, to confirm the absence of any significant ongoing stricture disease or obstruction, operative evaluation with retrograde studies were recommended. Procedure note: The patient was consented in the preoperative holding area before being transferred to the operative suite where general anesthesia was induced. She was given Ancef 1 g IV antimicrobial prophylaxis, and pneumoboots were provided for DVT prophylaxis. Her genitalia was prepped with Hibiclens and draped in standard fashion. 22 Martiniquais rigid cystoscope was used to traverse the urethra and into the bladder with ease. The bladder was decompressed of fluid and urine and surveyed. No papillary mucosal lesions, foreign bodies or stones were noted throughout. The ureteral orifices were orthotopic in location, and the right ureteral orifice was cannulated with ease with the tip of a 5 Martiniquais ureteral access catheter. Right retrograde pyelography: Using a 70: 30 mixture of Omnipaque and saline, contrast was injected via the lumen of the 5 Martiniquais ureteral access catheter and did propagate up the distal into the mid and proximal ureter before traversing across the UPJ to enter what was a significantly dilated renal pelvis with caliectasis. While there was no significant delay noted in transit of the contrast, there was some slight narrowing in the area, which raised the question of possible stricture disease. I observed the decompression and drainage of contrast over the course of about 5 minutes, and I noted significant retention of contrast though a diminished right ureteral jet was noted. So to evaluate the potential for obstruction further, I initially passed the sensor wire via the 5 Martiniquais ureteral access catheter and under live fluoroscopic imagery, watch the wire passed with ease beyond the UPJ and into the renal pelvis and calyces. I then advanced the 5 Martiniquais ureteral access catheter under live fluoroscopic imagery beyond the UPJ into the renal pelvis. I felt and met no resistance passing in either the wire or the 5 Martiniquais catheter. As a result, I remove the 5 Martiniquais ureteral access catheter and passed an 8/10 dilator, again under live fluoroscopic imagery, initially passing the 8 Martiniquais, and then the 10 Martiniquais dilator, assessing for any sign of resistance going across the area of the surgical repair. No resistance was encountered, and the 10 Martiniquais dilator did enter the renal pelvis with ease. I thus removed the 8 Martiniquais portion of the dilator and allowed the renal pelvis and calyces to completely decompressed through the 10 Martiniquais lumen of the dilator. I then passed the sensor wire back into the collecting system as observed fluoroscopically and remove the 10 Martiniquais sheath before passing a 12 x 14 Martiniquais ureteral access sheath over the sensor wire under live fluoroscopic imagery beyond the point of the ureteropelvic junction, where again I met no resistance and the 12 Martiniquais sheath did pass into the collecting system with ease. As a result, I backed the 12x14 Martiniquais ureteral access sheath down into the proximal ureter beyond the ureteropelvic junction, and I injected full- strength contrast under live fluoroscopic imagery, and I noted the contrast to pass quickly and easily into the collecting system with no evidence of delay or obstruction. As a result, with no resistance or obstruction, no kinking or tortuosity noted of the proximal ureter at the UPJ, while chronic pelvocaliectasis was noted, no anatomic residual obstruction was present. As a result, after advancing the 12x14 Martiniquais ureteral access sheath back into the collecting system over the sensor wire and allowing it to decompress, I removed the ureteral access sheath. I then passed the cystoscope back into her bladder to decompress the the bladder of fluid and urine before removing the cystoscope. The patient was then taken out of the lithotomy position, awakened her from general anesthesia, transferred her to a stretcher, and then transferred to the recovery room in good condition. Complications: None Discharge disposition: Recommend follow-up in about 6 months with pre-clinic repeat ultrasound performed to assess for any significant change in the degree of hydronephrosis.
[2024-08-14] MEDS ORDERED: CODEINE 30MG/APAP 300MG TAB ONE (11:47)
[2024-08-14] MEDS ORDERED: PHENAZOPYRIDINE 100MG TAB PO ONE (11:47)
[2024-08-14] MEDS: CODEINE 30MG/APAP 300MG TAB PO PRN (11:51)
[2024-08-14] MEDS: PHENAZOPYRIDINE 100MG TAB PO ONE (11:51)
[2024-08-14 13:26] VITALS: BP 98/72; TEMP 97.1; O2SAT 100
== END 2024-08-14 12:25 | disposition home or self-care (01) ==
LOC: OR 07:16
PROVIDERS: ATTEND Urology
PROC: 0T768ZZ Dilation of Right Ureter, Via Natural or Artificial Opening Endoscopic (ICD-10-PCS; principal; 2024-08-14 08:45)
DX: N13.30 Unspecified hydronephrosis (principal); R33.9 Retention of urine, unspecified; N20.0 Calculus of kidney; R82.991 Hypocitraturia
CPT/HCPCS: 52341; 93005; 87088; 85025; 87086; 36415; 85610; 71046; J2704; J2003; J2250; J3010; J1100; J2405; J7120; J0690

== ENCOUNTER 2025-06-03 18:13 | Emergency (ER) | payer MEDICAID ==
--- NOTE | 2025-06-03 19:02 | RAD REPORT ---
EXAM: CT Head Brain Wo Cont HISTORY: PAIN COMPARISON: 02/09/2020 TECHNIQUE: Multiple contiguous axial images were obtained for a CT of the brain without contrast. Sag ittal and coronal reformats were performed. One or more of the following dose reduction techniques were used: Automated exposure control, adjus tment of the mA and kV according to patient size, and iterative reconstruction. Unless otherwise specified, incidental findings do not require dedicated imaging follow-up. FINDINGS: No evidence of hydrocephalus, intracranial hemorrhage, or extra-axial fluid collection. The brain is normal in morphology. The calvarium is intact. The visualized paranasal sinuses and mastoid air cells are essentially clear . IMPRESSION: No evidence of acute intracranial abnormality.
--- NOTE | 2025-06-03 19:08 | EDPHYS ---
Physician Documentation [facility] Name: Bisi Key Age: 54 yrs Sex: Female : 1970 Arrival Date: 06/03/2025 Time: 18:13 Bed 18 Private MD: ED Physician Cody Chris HPI: 06/03 19:03 This 54 yrs old Female presents to ER via Ambulatory with complaints of Laceration To Head. 19:03 Patient is a 54-year-old female who presents for head injury. States she was working in the yard, bent over to cloth picker a rock and fell forward hitting her head on a brick. Denies LOC. States this happened a couple of hours ago and she was going to come in but decided to be safe and come make sure nothing was wrong on the inside of her head.. 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 - Infectious Disease History:: Denies. - Social history:: Smoking status: Patient denies any tobacco usage or history of. ROS: 18:59 Constitutional: As per HPI kb Exam: 18:59 Constitutional: This is a well developed, well nourished patient who is awake, alert, kb and in no acute distress. Eyes: Pupils equal round and reactive to light, extra-ocular motions intact. Lids and lashes normal. Conjunctiva and sclera are non-icteric and not injected. Cornea within normal limits. Periorbital areas with no swelling, redness, or edema. ENT: Moist Mucous membranes Cardiovascular: Regular rate Respiratory: Respirations even and unlabored. No increased work of breathing. Talking in full sentences Skin: Warm, dry with normal turgor. Normal color. MS/ Extremity: Pulses equal, no cyanosis. Neurovascular intact. Full, normal range of motion. Neuro: Awake and alert, GCS 15, oriented to person, place, time, and situation. 18:59 Head/face: Noted is no obvious of injury or deformity except abrasion(s), that are moderate, of the right oriental orthodox, a laceration(s), that is superficial, of the right oriental orthodox, Vital Signs: 18:28 BP 129 / 84; Pulse 69; Resp 16; Temp 98.1; Pulse Ox 100% ; Weight 65.77 kg; Height 5 dd2 ft. 2 in. ; Pain 2/10; 19:29 BP 124 / 78; Pulse 71; Resp 15; Temp 98.2; Pulse Ox 100% ; me1 18:28 Body Mass Index 26.52 (65.77 kg, 157.48 cm) dd2 18:28 Pain Scale: Adult dd2 MDM: 18:18 Medical Screening Exam initiated kb 19:07 Differential diagnosis: superficial laceration, head injury, concussion, avulsion. Data kb reviewed: vital signs, nurses notes. Historians other than the Patient: Spouse/Significant Other: spouse. Counseling: I had a detailed discussion with the patient and/or guardian regarding the historical points, exam findings, and any diagnostic results supporting the discharge/admit diagnosis, radiology results, the need for outpatient follow up, a family practitioner, to return to the emergency department if symptoms worsen or persist or if there are any questions or concerns that arise at home. 06/03 18:21 Order name: CT Head Brain wo Cont; Complete Time: 19:04 kb 06/03 18:21 Order name: Wound Care; Complete Time: 19:14 kb Administered Medications: 19:14 Drug: Boostrix Tdap IM 0.5 ml IM once; as a single dose Route: IM; Site: left deltoid; me1 19:20 Follow up: Response: No adverse reaction me1 Disposition Summary: 06/03/25 19:08 Discharge Ordered Notes: Location: Home kb Condition: Stable kb Diagnosis - Unspecified injury of head, initial encounter kb - Facial Laceration/ Laceration without foreign body of cheek and temporomandibular kb area - avulsion and abrasion Followup: kb - With: Emergency Department - When: As needed - Reason: Worsening of condition Followup: kb - With: Private Physician - When: 2 - 3 days - Reason: Recheck today's complaints, Continuance of care, Re-evaluation by your physician Discharge Instructions: - Discharge Summary Sheet kb - Facial Laceration, [id number]-[id number] kb - Head Injury, Adult, [id number] kb Forms: - Medication Reconciliation Form kb - Antibiotic Education kb - Prescription Opioid Use kb - Patient Portal Instructions kb - Leadership Thank You Letter kb Addendum: 06/06/2025 07:02 Co-signature as Attending Physician, Cody Chris MD I reviewed the patient's care r n provided by the Advanced Practice Provider and agree with the diagnosis and treatment plan. Signatures: Dispatcher [employer] EDMariel Black, BELT SEWER-C BELT SEWER-Ckb Cody Chris MD MD rn Eddleman, Michelle, RN RN me1 TRELL MARTIN RN RN dd2
--- NOTE | 2025-06-03 19:08 | ER ---
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 PT DENIES LOC. Coronavirus screen: At this time, the client does not indicate any symptoms associated with coronavirus-19. Ebola Screen: No symptoms or risks identified at this time. Complicating Factors: There are no complicating factors for this patient. Initial Sepsis Screen: Does the patient meet any 2 criteria? No. Patient's initial sepsis screen is negative. Does the patient have a suspected source of infection? No. Patient's initial sepsis screen is negative. Risk Assessment: Do you want to hurt yourself or someone else? Patient reports no desire to harm self or others. Onset of symptoms was June 03, 2025. 18:28 Method Of Arrival: Ambulatory dd2 18:28 Acuity: AKASH 3 dd2 Triage Assessment: 18:32 General: Appears in no apparent distress. uncomfortable, Behavior is calm, cooperative, dd2 appropriate for age. Pain: Complains of pain in right protestant. Derm: Wound noted right protestant. Injury Description: Puncture sustained to right protestant was sustained 2-4 hours ago. 19:29 Injury Description: Laceration sustained to right protestant. 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 - Infectious Disease History:: Denies. - Social history:: Smoking status: Patient denies any tobacco usage or history of. Screenin:40 [facility] ED Fall Risk Assessment (Adult) History of falling in the last 3 months, me1 including since admission Yes- single mechanical fall (1 pt) Confusion or Disorientation No (0 pts) Intoxicated or Sedated No (0 pts) Impaired Gait No (0 pts) Mobility Assist Device Used No (0 pt) Altered Elimination No (0 pt) Score/Fall Risk Level 0 - 2 = Low Risk Maintained a safe environment, Provided non-skid footwear, Hourly rounding (assess needs \T\ fall precautionary measures) done. Abuse screen: Denies threats or abuse. Nutritional screening: No deficits noted. Tuberculosis screening: No symptoms or risk factors identified. 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 PT DENIES LOC. Pain: Complains of pain in right protestant Pain does not radiate. Pain currently is 2 out of 10 on a pain scale. Quality of pain is described as aching, Pain began suddenly, Is continuous. Neuro: Level of Consciousness is awake, alert, obeys commands, Oriented to person, place, time, situation, Appropriate for age. Cardiovascular: Patient's skin is warm and dry. Respiratory: Airway is patent Respiratory effort is even, unlabored, Respiratory pattern is regular, symmetrical. GI: No signs and/or symptoms were reported involving the gastrointestinal system. : No signs and/or symptoms were reported regarding the genitourinary system. EENT: No signs and/or symptoms were reported regarding the EENT system. Derm: Wound noted right protestant Wound is abrasion. Musculoskeletal: Circulation, motion, and sensation intact. Range of motion: intact in all extremities. Injury Description: Abrasion sustained to right protestant. 19:30 Injury Description: Laceration is jagged, not bleeding. me1 Vital Signs: 18:28 BP 129 / 84; Pulse 69; Resp 16; Temp 98.1; Pulse Ox 100% ; Weight 65.77 kg; Height 5 dd2 ft. 2 in. ; Pain 2/10; 19:29 BP 124 / 78; Pulse 71; Resp 15; Temp 98.2; Pulse Ox 100% ; me1 18:28 Body Mass Index 26.52 (65.77 kg, 157.48 cm) dd2 18:28 Pain Scale: Adult dd2 ED Course: 18:17 Patient arrived in ED. al6 18:18 Mariel Andrew [facility]C [facility]. kb 18:18 Cody Chris MD is Attending Physician. kb 18:32 Triage completed. dd2 18:32 Arm band placed on left wrist. dd2 18:40 Patient has correct armband on for positive identification. Bed in low position. Call me1 light in reach. Side rails up X2. Provided Education on: POC. Verbalized understanding.. Client placed on continuous cardiac and pulse oximetry monitoring. NIBP monitoring applied. Pulse ox on. NIBP on. 18:40 No provider procedures requiring assistance completed. Patient did not have IV access me1 during this emergency room visit. 18:48 CT Head Brain wo Cont In Process Unspecified. EDMS 19:08 Jadyn Landry, RN is Primary Nurse. me1 Administered Medications: 19:14 Drug: Boostrix Tdap IM 0.5 ml IM once; as a single dose Route: IM; Site: left deltoid; me1 19:20 Follow up: Response: No adverse reaction me1 Medication: 18:40 VIS not applicable for this client. me1 Outcome: 19:08 Discharge ordered by . kb 19:30 Discharged to home ambulatory, with family, me1 19:30 Condition: stable 19:30 Discharge instructions given to patient, Instructed on discharge instructions, follow up and referral plans. wound care, Demonstrated understanding of instructions, follow-up care, wound care, 19:30 Patient left the ED. 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 PT DENIES LOC. dd2
[2025-06-03] MEDS ORDERED: TDAP (DIPHTH,PERTUSS(ACELL),TET VAC) 0.5 ML VIAL IMVAC ONE (19:09)
[2025-06-03 20:00] VITALS: O2SAT 100
[2025-06-03 20:02] VITALS: BP 124/78; TEMP 98.2
== END 2025-06-03 19:30 | disposition home or self-care (01) ==
LOC: ER 18:13
DX: S01.411A Laceration without foreign body of right cheek and temporomandibular area, initial encounter (principal); Z23 Encounter for immunization
CPT/HCPCS: 70450; 90715; 96372; 99284